=== PATIENT | female | born 1940 | race Caucasian/White ===

== ENCOUNTER → 2016-09-26 | Outpatient (REF) | payer MEDICARE, OTHER ==
[2016-09-26 15:24] LABS: ALBUMIN 3.8 GM/DL (3.2-5.2); ALBUMIN/GLOBULIN RATIO 1.15 (1.00-1.93); ALKALINE PHOSPHATASE 72 U/L (45-117); ALT/SGPT 22 U/L (12-78); ANION GAP 9 MEQ/L (8-16); AST/SGOT 17 U/L (15-37); BILIRUBIN,TOTAL 0.6 MG/DL (0.2-1.0); BLOOD UREA NITROGEN 11 MG/DL (7-18); CALCIUM LEVEL 9.9 MG/DL (8.8-10.2); CARBON DIOXIDE LEVEL 32 MEQ/L (21-32); CHLORIDE LEVEL 92 MEQ/L (98-107); CHOLESTEROL LEVEL 159 MG/DL (<200); GLOMERULAR FILTRATION RATE > 60.0 (>39); GLUCOSE, FASTING 85 MG/DL (83-110); MAGNESIUM LEVEL 1.9 MG/DL (1.8-2.4); POTASSIUM SERUM 3.9 MEQ/L (3.5-5.1); SODIUM LEVEL 133 MEQ/L (136-145); TOTAL PROTEIN 7.1 GM/DL (6.4-8.2); TRIGLYCERIDES LEVEL 140 MG/DL (<150)
== END ==
LOC: M SFHCLACO 08:34
PROVIDERS: ATTEND Physician Assistant
DX: E78.2 Mixed hyperlipidemia (principal); I10 Essential (primary) hypertension; E61.2 Magnesium deficiency

== ENCOUNTER → 2016-10-03 | Outpatient (REF) | payer MEDICARE, OTHER | LOC: M SFHCLACO 10:53 | PROVIDERS: ATTEND Physician Assistant | DX: E04.2 Nontoxic multinodular goiter (principal); I10 Essential (primary) hypertension ==

== ENCOUNTER → 2017-08-21 | Outpatient (REF) | payer OTHER, MEDICARE | LOC: M SFHCLACO 10:32 | DX: I10 Essential (primary) hypertension (principal); E78.2 Mixed hyperlipidemia; E61.2 Magnesium deficiency; E04.2 Nontoxic multinodular goiter; Z53.9 Procedure and treatment not carried out, unspecified reason ==

== ENCOUNTER → 2017-11-28 | Outpatient (REF) | payer MEDICARE ==
[2017-11-28 18:57] LABS: INR 0.92; PROTHROMBIN TIME 12.4 SECONDS (12.1-14.4)
[2017-11-28 18:58] LABS: PARTIAL THROMBOPLASTIN TIME 28.1 SECONDS (25.4-37.6)
[2017-11-28 19:19] LABS: BASO # 0.1 10^3/uL (0.0-0.2); EOS # 0.2 10^3/uL (0.0-0.50); EOS % 3.8 % (0.0-3.0); HEMATOCRIT 38.1 % (36.0-47.0); HEMOGLOBIN 12.9 g/dl (12.0-15.5); IMMATURE GRANULOCYTE % 0.4 % (0-3.0); LYMPH # 1.1 10^3/uL (1.5-4.5); LYMPH % 20.6 % (24.0-44.0); MEAN CORPUSCULAR HEMOGLOBIN 29.1 pg (27.0-33.0); MEAN CORPUSCULAR HGB CONC 33.9 g/dl (32.0-36.5); MEAN CORPUSCULAR VOLUME 85.8 fl (80.0-96.0); MONO # 0.5 10^3/uL (0.0-0.8); MONO % 9.4 % (0.0-5.0); NEUTROPHILS # 3.4 10^3/uL (1.8-7.7); NEUTROPHILS % 64.8 % (36.0-66.0); PLATELET COUNT, AUTOMATED 247 10^3/uL (150-450); RED BLOOD COUNT 4.44 10^6/uL (4.00-5.40); RED CELL DISTRIBUTION WIDTH 13.8 % (11.5-14.5); WHITE BLOOD COUNT 5.2 10^3/uL (4.0-10.0)
[2017-11-28 19:26] LABS: ALBUMIN 3.7 GM/DL (3.2-5.2); ALBUMIN/GLOBULIN RATIO 1.23 (1.00-1.93); ALKALINE PHOSPHATASE 57 U/L (45-117); ALT/SGPT 26 U/L (12-78); ANION GAP 8 MEQ/L (8-16); AST/SGOT 24 U/L (7-37); BILIRUBIN,TOTAL 0.6 MG/DL (0.2-1.0); BLOOD UREA NITROGEN 14 MG/DL (7-18); CARBON DIOXIDE LEVEL 32 MEQ/L (21-32); CHLORIDE LEVEL 94 MEQ/L (98-107); CREATININE FOR GFR 0.78 MG/DL (0.55-1.30); FREE T4 1.16 NG/DL (0.76-1.46); GLOMERULAR FILTRATION RATE > 60.0 (>39); GLUCOSE, FASTING 97 MG/DL (70-100); POTASSIUM SERUM 3.3 MEQ/L (3.5-5.1); SODIUM LEVEL 134 MEQ/L (136-145); TOTAL PROTEIN 6.7 GM/DL (6.4-8.2)
== END ==
LOC: M SFHCPLAZ 15:44
DX: Z01.818 Encounter for other preprocedural examination (principal); S42.292P Other displaced fracture of upper end of left humerus, subsequent encounter for fracture with malunion; S42.292A Other displaced fracture of upper end of left humerus, initial encounter for closed fracture; I10 Essential (primary) hypertension; S52.572A Other intraarticular fracture of lower end of left radius, initial encounter for closed fracture; E78.2 Mixed hyperlipidemia; X58.XXXA Exposure to other specified factors, initial encounter; Y92.9 Unspecified place or not applicable; W19.XXXA Unspecified fall, initial encounter
CPT/HCPCS: 84443

== ENCOUNTER 2019-01-28 07:28 | Day surgery (SDC) | payer MEDICARE ==
[~2019-01-28] VITALS: Ht 154.9 cm; Wt 65.5 kg
[~2019-01-28 07:28] MED LIST: BALANCED SALT IRRIGATION SOLUTION 500ML BAG (FOR OR EYE MACHINE) As Ordered ONE; DUOVISC (0.50ML VISCOAT/0.55ML PROVISC) OPHTH KIT As Ordered ONE; HYDR50TAB PO; LIDOCAINE 0.75%/EPINEPHRINE 0.025% IN BSS 0.8ML SYR INTRACAMERAL--OR ONLY As Ordered ONE; LISI10TA4 PO; METO50TA7 PO; MIDAZOLAM INJ 2 MG/2 ML VIAL (J2250) As Ordered ONE; OFLOXACIN 0.3 % (OCUFLOX) OPTH SOL 5ML OS ONE; PHENYLEPHRINE 2.5% OPHTH SOL 2ML OS ONE; POTA1TAB23 PO; POVIDONE-IODINE 5% OPHTH PREP SOL 30ML As Ordered ONE; PRAV40TA2 PO; PROPARACAINE 0.5% OPHTH SOL 15ML OS ONE; TROPICAMIDE 1% OPHTH SOLN 2ML OS ONE; VERA120T83 PO; fentaNYL 100 MCG/2 ML INJECTION (J3010) As Ordered ONE
[2019-01-28] MEDS ORDERED: CEFUROXIME 1MG/0.1ML INTRACAMERAL INJ As Ordered ONE (08:45)
[2019-01-28 09:35] VITALS: BP 174/77
--- NOTE | 2019-02-02 18:05 | RO ---
DATE OF PROCEDURE: 01/28/2019 PREOPERATIVE DIAGNOSIS: 1. Visually significant nuclear sclerotic cataract left eye. POSTOPERATIVE DIAGNOSIS: 1. Visually significant nuclear sclerotic cataract left eye. PROCEDURE: 1. Cataract extraction with use of phacoemulsification and placement of intraocular lens, AU00T0, 20.0 D, left eye. SURGEON: Fei Sewell DO [facility]: None. ANESTHESIA: Local with monitored anesthesia care (MAC). COMPLICATIONS: None. POSTOPERATIVE CONDITION: Stable. INDICATIONS FOR SURGERY: 1. Blurred vision affecting patients activities of daily living. DESCRIPTION OF PROCEDURE: The patient was seen in the preoperative area and properly identified. The correct operative eye was identified and marked. The patient received topical anesthetic, antibiotics, and topical dilating drops. The patient was then transferred to the operating room. The correct side was re-identified, and a time-out was performed. The eye was prepped and draped in a sterile fashion. The eyelids were isolated with Tegaderm tape, and the lids were held open with an adjustable speculum. A 1.0 mm paracentesis incision was made. Intraocular preservative-free Shugarcaine was then injected into the anterior chamber. Viscoelastic was then injected into the anterior chamber through the paracentesis. Using a 2.4 mm sharp-tipped keratome, the anterior chamber was entered via a temporal clear cornea incision. A continuous curvilinear capsulorrhexis was created with Utrata forceps. Hydrodissection was performed with balanced salt solution (BSS) on a blunt cannula until the nucleus was able to rotate freely. The crystalline lens was phacoemulsified and aspirated. Irrigation/aspiration was used to remove the cortical material. Cohesive viscoelastic was placed into the capsular bag to deepen it. The implant was placed into the capsular bag and allowed to unfold. Placement was confirmed by visualizing the anterior capsulorrhexis. Irrigation/aspiration was used to remove the viscoelastic. The clear corneal incision was hydrated with BSS on a blunt cannula. The lens was well positioned. The incisions were then tested for leaks and found to be negative. The eye was then palpated for appropriate pressure and adjusted accordingly with BSS. The eyelid speculum was then carefully removed. A shield was placed over the eye. The patient tolerated the procedure well and was discharged to the recovery unit in a stable condition.
== END 2019-01-28 09:44 | disposition home or self-care (01) ==
LOC: M SDC 07:28
PROVIDERS: ATTEND Ophthalmology
DX: H25.12 Age-related nuclear cataract, left eye (principal); I10 Essential (primary) hypertension; E78.5 Hyperlipidemia, unspecified; K21.9 Gastro-esophageal reflux disease without esophagitis; Z79.899 Other long term (current) drug therapy; Z88.1 Allergy status to other antibiotic agents; Z88.5 Allergy status to narcotic agent
CPT/HCPCS: 66984; J2250; J3010; V2632

== ENCOUNTER 2020-06-18 14:10 | Inpatient (IN) | payer MEDICARE ==
[~2020-06-18] VITALS: Ht 160 cm; Wt 65.3 kg
[~2020-06-18 14:10] MED LIST changes: -BALANCED SALT IRRIGATION SOLUTION 500ML BAG (FOR OR EYE MACHINE) As Ordered ONE; -DUOVISC (0.50ML VISCOAT/0.55ML PROVISC) OPHTH KIT As Ordered ONE; -LIDOCAINE 0.75%/EPINEPHRINE 0.025% IN BSS 0.8ML SYR INTRACAMERAL--OR ONLY As Ordered ONE; +LISI10TA22 PO; -LISI10TA4 PO; -MIDAZOLAM INJ 2 MG/2 ML VIAL (J2250) As Ordered ONE; -OFLOXACIN 0.3 % (OCUFLOX) OPTH SOL 5ML OS ONE; -PHENYLEPHRINE 2.5% OPHTH SOL 2ML OS ONE; -POVIDONE-IODINE 5% OPHTH PREP SOL 30ML As Ordered ONE; -PROPARACAINE 0.5% OPHTH SOL 15ML OS ONE; -TROPICAMIDE 1% OPHTH SOLN 2ML OS ONE; -fentaNYL 100 MCG/2 ML INJECTION (J3010) As Ordered ONE
[2020-06-18] MEDS ORDERED: NS 930 ML in IV 1 EA IV ONE (14:45)
[2020-06-18] MEDS ORDERED: cefTRIAXone SOD 2 GM in D5W MINI-BAG PLUS 50 ML IV ONE (14:45)
[2020-06-18 14:55] LABS: VENOUS BASE EXCESS 1.7 (-2.0-2.0); VENOUS HCO3 28.1 MEQ/L (23.0-27.0); VENOUS O2 SATURATION 37.3 % (60.0-80.0); VENOUS PARTIAL PRESSURE CO2 51.5 mmHg (38.0-50.0); VENOUS PARTIAL PRESSURE O2 22.1 mmHg (30.0-50.0); VENOUS PH 7.355 UNITS (7.330-7.430); VENOUS STANDARD HCO3 24.6 MEQ/L; VENOUS TOTAL CO2 29.7 MEQ/L (24.0-28.0)
--- NOTE | 2020-06-18 15:01 | ECGEPIP ---
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
[2020-06-18 15:03] LABS: HEMATOCRIT 38.1 % (36.0-47.0); HEMOGLOBIN 12.9 g/dl (12.0-15.5); MEAN CORPUSCULAR HEMOGLOBIN 28.3 pg (27.0-33.0); MEAN CORPUSCULAR HGB CONC 33.9 g/dl (32.0-36.5); MEAN CORPUSCULAR VOLUME 83.6 fl (80.0-96.0); PLATELET COUNT, AUTOMATED 272 10^3/uL (150-450); RED BLOOD COUNT 4.56 10^6/uL (4.00-5.40); WHITE BLOOD COUNT 15.6 10^3/uL (4.0-10.0)
--- OUTSIDE RECORDS SUMMARY | 2020-06-18 15:22 | CCD ---
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 No medication changes have been made Problem Hallux valgus with bunions M20.10 Active 60332 2155 Problem Environmental and seasonal allergies J30.89 Act jennifer [id number] Controlled on Flonase, no medication changes Problem Multinodular goiter (nontoxic) E04.2 Active 3 0206196 Stable, we will continue to monitor Problem Osteoarthritis involving multiple joints on both sides of body M15.9 Active 552243837 advised Aleve 2 tabs plus APAP 2 tabs in the AM, may repeat at end of day Problem Hypokalemia E87.6 Active 36366688 Problem Age-related osteoporosis without current pathological fracture M81.0 Active 97128741 Problem Essential hypertension I10 Active 22921416 Well controlled on current regimen of metoprolol, lisinopril, verapamil, and HCTZ. No medication changes have been made Problem Hypomagnesemia E83.42 Active 373248004 Problem Senile cataract of right eye, unspecified age-re lated cataract type H25.9 Active 71862726 Problem Age-related cataract of both eyes, unspecified age-related cataract type H25.9 Active 12407358 Problem Menopausal and female climacteric states N95.1 Active 806969643 ALLERGIES Allergen (clinical drug ingredient) Drug/Non Drug Allergy do cumented on EMR Reaction Allergy Type Onset Date Status doxycycline Doxycycline Hyclate([facility] Code:[address]-07) Rash Dr day Allergy Active ENCOUNTERS from 1940 to 2020-03-29 Encounter Location Date Provider Diagnosis [facility] [place] [address] [place] [id number] Feb, [facility] [place] Essential hypertension I10 IMMUNIZATIONS Vaccine Route Administration Date Status Influenza (18 yrs & older) Flublok Unknown Jan 22, 2019 Administered Influenza (High Dose 65 & up) IM Intramuscular May 21, 2012 A dministered SOCIAL HISTORY Tobacco Use: Social History Observation Description Date Details (start date - stop date) Never Smoker Sex Assigned At : Social History Observation Description Sex Assigned At Unknown Audit Question Answer Notes Total Score: 4 Interpretation: Alcohol Education Language: Question Answer Notes Languages spoken: Bulgarian Shinto: Question Answer Notes Shinto No mormonism beliefs that would impact health care. Drug and Alcohol Question Answer Notes Total Score: 0 Interpretation: No problems reported BMI Care Goal Follow-Up Question Answer Notes Above Normal BMI Follow-Up Dietary management educatio n, guidance, and counseling Tobacco Use: Question Answer Notes Are you a: never smoker never smoker REASON FOR REFERRAL No Information VITAL SIGNS No information MEDICATIONS Medication SIG (Take, Route, Frequency, Duration) Notes Start Da te End Date Status Potassium Chloride 10 MEQ 1 tablet with food Orally Once a day f or 90 days Feb, Active Cetirizine HCl 10 MG 1 tablet Orally Once a day for 30 day(s) Active Hydrochlorothiazide 50 MG 1 tablet Orally every AM for 90 days Active Metoprolol Tartrate 50MG 1 tablet with food Orally Once a day for 90 days Active Verapamil HCl 120 MG 1 tablet Orally every PM for 90 days Jul, Active Pravastatin Sodium 40 MG 1 tablet Orally Once a day for 90 days Active Pneumovax 23 25 MCG/0.5ML as directed Injection Feb, Active Lisinopril 10 MG 1 tablet Orally every noon for 90 days Active Calcium & Magnesium Carbonates 311-232 MG 1 tablet (al so contain zinc & vitamin D) Orally Once a day for 90 days Active Famotidine 20 MG 1 tablet at bedtime as needed Orally Once a day for 90 days Feb, Active Cyclobenzaprine HCl 5 MG 1 tablet at bedtime as neede d Orally Once a day for 90 days Jul, Active Flonase 50 MCG/ACT 1 spray in each nostril Nasally Once a day fo r 90 days May, Active Protonix [address] Kim Orally Twice a day for 90 days Active PROCEDURES No Information RESULTS No Results REASON FOR VISIT verapamil MEDICAL (GENERAL) HISTORY Type Description Date Medical History hypertension Medical History hyperlipidemia Medical History GERD Medical History history of peptic ulcer disease Medical History chronic environmental allergies Medical History history of migraines Medical History arthritis in the hips Medical History right hallux valgus Surgical History bladder surgery 1970s Surgical History total abdominal hysterectomy/bilateral s alpingo-oophorectomy 1979 Surgical History repair of hammertoes 09/2016 Surgical History shoulder repain left and wrist 2018 Hospitalization History surgeries as above Goals Section No Information Health Concerns No Information MEDICAL EQUIPMENT No Information MENTAL STATUS No Information FUNCTIONAL STATUS No Information ASSESSMENTS Encounter Date Diagnosis Assessment Notes Treatment Notes Treatm ent Clinical Notes Feb, Essential hypertension (ICD-10 - I10) PLAN OF TREATMENT Medication Medication Name Sig Start Date Stop Date Pneumovax 23 25 MCG/0.5ML as directed Injection Feb, Verapamil HCl 120 MG 1 tablet Orally every PM for 90 days Jul Next Appt Details Provider Name:Samira Peña, 2020-05-1 2 10:00:00 AM, [address], [place], [address], Insurance Providers Payer Name Payer Address Payer Phone Insured Name Patient Relati onship to Insured Coverage Start Date Coverage End Date MEDICARE BLUE PPO [address] [facility] [address] [place] [id number] MATTY GEORGE self
--- OUTSIDE RECORDS SUMMARY | 2020-06-18 15:22 | CCD ---
Author Author [facility] Organization [facility] Address Unknown Phone Unavailable Care Team Providers Care Post Office Manager Name Role Phone Casey, Samira PA Unavailable Unavailable Casey, Samira PA Unavailable Unavailable Casey, Samira PA Unavailable Unavailable Casey, Samira PA Unavailable Unavailable Casey, Samira PA Unavailable Unavailable Casey, Samira PA Unavailable Unavailable Casey, Samira PA Unavailable Unavailable Casey, Samira PA Unavailable Unavailable Casey, Samira PA Unavailable Unavailable Casey, Samira PA Unavailable Unavailable Casey, Samira PA Unavailable Unavailable Casey, Samira PA Unavailable Unavailable Casey, Samira PA Unavailable Unavailable Casey, Samira PA Unavailable Unavailable Casey, Samira PA Unavailable Unavailable Casey, Samira PA Unavailable Unavailable Casey, Samira PA Unavailable Unavailable Casey, Samira PA Unavailable Unavailable Casey, Samira PA Unavailable Unavailable Casey, Samira PA Unavailable Unavailable Casey, Samira PA Unavailable Unavailable Casey, Samira PA Unavailable Unavailable Acsey, Samira PA Unavailable Unavailable Casey, Samira PA Unavailable Unavailable Casey, Samira PA Unavailable Unavailable Casey, Samira PA Unavailable Unavailable Casey, Samira PA Unavailable Unavailable Casey, Samira PA Unavailable Unavailable Casey, Samira PA Unavailable Unavailable Casey, Samira PA Unavailable Unavailable Casey, Samira PA Unavailable Unavailable Casey, Samira PA Unavailable Unavailable Casey, Samira PA Unavailable Unavailable Casey, Samira PA Unavailable Unavailable Casey, Samira PA Unavailable Unavailable Casey, Samira PA Unavailable Unavailable Casey, Samira PA Unavailable Unavailable Casye, Samira PA Unavailable Unavailable Casey, Samira PA Unavailable Unavailable Casey, Samira PA Unavailable Unavailable Casey, Samira PA Unavailable Unavailable Casey, Samira PA Unavailable Unavailable Casey, Samira PA Unavailable Unavailable Casey, Samira PA Unavailable Unavailable Casey, Samira PA Unavailable Unavailable Casey, Samira PA Unavailable Unavailable Casey, Samira PA Unavailable Unavailable Casey, Samira PA Unavailable Unavailable Casey, Samira PA Unavailable Unavailable Casey, Samira PA Unavailable Unavailable Casey, Samira PA Unavailable Unavailable Casey, Samira PA Unavailable Unavailable Casey, Samira PA Unavailable Unavailable Casey, Samira PA Unavailable Unavailable Casey, Samira PA Unavailable Unavailable Casey, Samira PA Unavailable Unavailable Casey, Samira PA Unavailable Unavailable Casey, Samira PA Unavailable Unavailable Cecilia Gutierrez MD Ronn Unavailable Unavailable Cecilia Gutierrez MD Ronn Unavailable Brenda COX, M Ronn Unavailable Brenda COX, M Ronn Unavailable Brenda COX M Ronn Unavailable Brenda COX M Ronn Unavailable Brenda COX, M Ronn Unavailable Brenda COX, M Ronn Unavailable Brenda COX M Ronn Unavailable Brenda COX, M Ronn Unavailable Brenda COX, M Ronn Unavailable Brenda COX, M Ronn Unavailable Brenda COX M Ronn Unavailable Brenda COX M Ronn Unavailable Brenda COX M Ronn Unavailable Brenda COX M Ronn Unavailable Brenda COX M Ronn Unavailable Orio MD, M Ronn Unavailable Orio MD, M Ronn Unavailable Orio MD, M Ronn Unavailable Orio MD, M Ronn Unavailable Orio MD, M Ronn Unavailable Orio MD, M Ronn Unavailable Orio MD, M Ronn Unavailable Orio MD, M Ronn Unavailable Orio MD, M Ronn Unavailable Orio MD, M Ronn Unavailable Orio MD, M Ronn Unavailable Orio MD, M Ronn Unavailable Orio MD, M Ronn Unavailable Re-disclosure Warning The records that you are about to access may contain information from federally-assisted alcohol or drug abuse programs. If such information is present, then the following federally mandated warning applies: This information has been disclosed to you from records protected by federal confidentiality rules (42 CFR part 2). The federal rules prohibit you from making any further disclosure of this information unless further disclosure is expressly permitted by the written consent of the person to whom it pertains or as otherwise permitted by 42 CFR part 2. A general authorization for the release of medical or other information is NOT sufficient for this purpose. The Federal rules restrict any use of the information to criminally investigate or prosecute any alcohol or drug abuse patient.The records that you are about to access may contain highly sensitive health information, the redisclosure of which is protected by Article 27-F of the [facility] Public Health law. If you continue you may have access to information: Regarding HIV / AIDS; Provided by facilities licensed or operated by the [facility] Office of Mental Health; or Provided by the [facility] Office for People With Developmental Disabilities. If such information is present, then the following [facility] mandated warning applies: This information has been disclosed to you from confidential records which are protected by state law. State law prohibits you from making any further disclosure of this information without the specific written consent of the person to whom it pertains, or as otherwise permitted by law. Any unauthorized further disclosure in violation of state law may result in a fine or intermediate sentence or both. A general authorization for the release of medical or other information is NOT sufficient authorization for further disc losure. Allergies and Adverse Reactions Type Description Substance Reaction Status Data Source(s ) Drug allergy Doxycycline Hyclate Doxycycline Rash Active eC W1 ([facility]) Encounters Encounter Providers Location Date Indications Data Source(s ) Unknown [address] [place] [id number] 05/25/2020 12:00:00 AM EST eCW1 ([facility]) Unknown [address] [place] [phone] 05/15/2020 12:00:00 AM EST eCW1 ([facility]) Unknown [address] [facility] [id number] 03/27/2020 12:00:00 AM EST eCW1 ([facility]) Outpatient [address] [facility] [id number] 03/08/2020 12:00:00 AM EST eCW1 ([facility]) Recurring Patient Attender: Ronn REESEeferrer: Samira STREETER 02/29/2020 08:08:57 AM EST [facility] Outpatient Attender: Ronn Gutierrez MDReferrer: Samira STREETER 02/28/2020 03:42:16 PM EST [facility] Recurring Patient Attender: Ronn REESEeferrer: Samira STREETER 02/28/2020 03:10:24 PM EST [facility] Icard [address] [facility] [id number] 02/25/2020 12:00:00 AM EDT eCW1 ([facility]) Outpatient Attender: Samira STREETER 02/22/2020 08:02:0 0 AM EDT Lab [facility] Lab Unknown [address] [facility] [id number] 11/16/2019 12:00:00 AM EDT eCW1 ([facility]) [facility] Iker [address] [facility] [address] 09/07/2019 12:00:00 AM EDT eCW1 ([facility]) [facility] Emily [address] [facility] [address] 08/31/2019 12:00:00 AM EDT eCW1 ([facility]) [facility] Iker [address] [place] [address], [place] [address] 08/24/2019 12:00:00 AM EDT eCW1 [facility]) Outpatient Attender: Samira STREETER 08/18/2019 08:39:0 0 AM EDT Lab [facility] Lab [facility] Iker [address] [place] [address], [place] [address] 08/10/2019 12:00:00 AM EDT eCW1 ([facility]) [facility] Iker [address] [place] [address], [place] [address] 08/10/2019 12:00:00 AM EDT eCW1 ([facility]) [facility] Emily [address] [place] [address], [place] [address] 06/08/2019 12:00:00 AM EST eCW1 ([facility]) [facility] Emily [address] [place] [address], [place] [address] 05/11/2019 12:00:00 AM EST eCW1 ([facility]) [facility] Emily [address] [place] [address], [place] [address] 05/07/2019 12:00:00 AM EST eCW1 ([facility]) Medications Medication Brand Name Start Date Product Form Dose Route Admi nistrative Instructions Pharmacy Instructions Status Indications Reaction Description Data Source(s) 0.5 ML pneumococcal capsular polysacchar kylee type 1 vaccine 0.05 MG/ML / pneumococcal capsular polysaccharide type 10A vaccine 0.05 MG/ML / pneumococcal capsular polysaccharide type 11A vaccine 0.05 MG/ML / pneumococcal capsular polysaccharide type 12F vac Pneumovax 23 25 MCG/0.5ML Pneumovax 23 25 MCG/0.5ML 03/08/2020 12:00:00 AM EST active Pneumovax 23 25 MCG/0.5ML eCW1 ([facility]) 0.5 ML pneumococcal capsular polysacchar kylee type 1 vaccine 0.05 MG/ML / pneumococcal capsular polysaccharide type 10A vaccine 0.05 MG/ML / pneumococcal capsular polysaccharide type 11A vaccine 0.05 MG/ML / pneumococcal capsular polysaccharide type 12F vac Pneumovax 23 25 MCG/0.5ML Pneumovax 23 25 MCG/0.5ML 03/08/2020 12:00:00 AM EST active Pneumovax 23 25 MCG/0.5ML eCW1 ([facility]) 0.5 ML pneumococcal capsular polysacchar kylee type 1 vaccine 0.05 MG/ML / pneumococcal capsular polysaccharide type 10A vaccine 0.05 MG/ML / pneumococcal capsular polysaccharide type 11A vaccine 0.05 MG/ML / pneumococcal capsular polysaccharide type 12F vac Pneumovax 23 25 MCG/0.5ML Pneumovax 23 25 MCG/0.5ML 03/08/2020 12:00:00 AM EST active Pneumovax 23 25 MCG/0.5ML eCW1 ([facility]) 0.5 ML pneumococcal capsular polysacchar kylee type 1 vaccine 0.05 MG/ML / pneumococcal capsular polysaccharide type 10A vaccine 0.05 MG/ML / pneumococcal capsular polysaccharide type 11A vaccine 0.05 MG/ML / pneumococcal capsular polysaccharide type 12F vac Pneumovax 23 25 MCG/0.5ML Pneumovax 23 25 MCG/0.5ML 03/08/2020 12:00:00 AM EST active Pneumovax 23 25 MCG/0.5ML eCW1 ([facility]) Cyclobenzaprine hydrochloride 5 MG Oral Tablet Cyclobe nzaprine HCl 5 MG Cyclobenzaprine HCl 5 MG 08/24/2019 12:00:00 AM EDT 1.0 {tablet_at_bedtime_as_needed} active Cy clobenzaprine HCl 5 MG eCW1 ([facility]) Cyclobenzaprine hydrochloride 5 MG Oral Tablet Cyclobe nzaprine HCl 5 MG Cyclobenzaprine HCl 5 MG 08/24/2019 12:00:00 AM EDT 1.0 {tablet_at_bedtime_as_needed} active Cy clobenzaprine HCl 5 MG eCW1 ([facility]) Cyclobenzaprine hydrochloride 5 MG Oral Tablet Cyclobe nzaprine HCl 5 MG Cyclobenzaprine HCl 5 MG 08/24/2019 12:00:00 AM EDT active 1 tablet at bedtime as needed eCW1 ([facility]) Cyclobenzaprine hydrochloride 5 MG Oral Tablet Cyclobe nzaprine HCl 5 MG Cyclobenzaprine HCl 5 MG 08/24/2019 12:00:00 AM EDT 1.0 {tablet_at_bedtime_as_needed} active Cy clobenzaprine HCl 5 MG eCW1 ([facility]) Cyclobenzaprine hydrochloride 5 MG Oral Tablet Cyclobe nzaprine HCl 5 MG Cyclobenzaprine HCl 5 MG 08/24/2019 12:00:00 AM EDT 1.0 {tablet_at_bedtime_as_needed} active Cy clobenzaprine HCl 5 MG eCW1 ([facility]) Cyclobenzaprine hydrochloride 5 MG Oral Tablet Cyclobe nzaprine HCl 5 MG Cyclobenzaprine HCl 5 MG 08/24/2019 12:00:00 AM EDT 1.0 {tablet_at_bedtime_as_needed} active Cy clobenzaprine HCl 5 MG eCW1 ([facility]) Insurance Providers Payer name Policy type / Coverage type Policy ID Covered constitution party ID Covered constitution party's relationship to fontaine Policy [place] Plan Information MEDICARE BLUE PPO 306 [id number] SP [id number] MEDICARE BLUE PPO 306 [id number] SP [id number] Blue Shield Medicare P [id number] SELF [id number] SELF PAY MEDICARE BLUE PPO EXCELLUS BC [id number] SP [id number] SELF PAY MEDICARE BLUE PPO EXCELLUS BC [id number] SP [id number] SELF PAY MEDICARE BLUE PPO EXCELLUS BC [id number] SP [id number] SELF PAY MEDICARE BLUE PPO EXCELLUS BC [id number] SP [id number] MEDICARE BLUE PPO 306 [id number] SP [id number] [facility] Other 0 Self 0 MEDICARE [id number] SP [id number] MEDICARE COMPLETE [id number] SP [id number] [facility] [id number] SP [id number] ANSI-Medicare Part B [id number] ANSI-Medicare Part B [id number] ANSI-Medicare Part B [id number] ANSI-Medicare Part B [id number] ANSI-Medicare Part B [id number] ANSI-Medicare Part B [id number] ANSI-Medicare Part B [id number] ANSI-Medicare Part B [id number] ANSI-Medicare Part B [id number] ANSI-Medicare Part B [id number] ANSI-Medicare Part B [id number] ANSI-Medicare Part B [id number] ANSI-Medicare Part B [id number] ANSI-Medicare Part B [id number] ANSI-Medicare Part B [id number] ANSI-Medicare Part B [id number] ANSI-Medicare Part B [id number] ANSI-Medicare Part B [id number] ANSI-Medicare Part B [id number] ANSI-Medicare Part B [id number] ANSI-Medicare Part B [id number] ANSI-Medicare Part B [id number] ANSI-Medicare Part B [id number] ANSI-Medicare Part B [id number] ANSI-Medicare Part B [id number] ANSI-Medicare Part B [id number] ANSI-Medicare Part B [id number] SELF PAY MEDICARE BLUE PPO EXCELLUS [id number] SP [id number] ANSI-Medicare Part B [id number] ANSI-Medicare Part B [id number] ANSI-Medicare Part B [id number] ANSI-Medicare Part B [id number] ANSI-Medicare Part B [id number] ANSI-Medicare Part B [id number] ANSI-Medicare Part B [id number] ANSI-Medicare Part B [id number] ANSI-Medicare Part B [id number] ANSI-Medicare Part B [id number] ANSI-Medicare Part B [id number] ANSI-Medicare Part B [id number] ANSI-Medicare Part B [id number] ANSI-Medicare Part B [id number] [facility] Medicare Passport F [id number] SELF [id number] ANSI-Medicare Part B [id number] ANSI-Medicare Part B [id number] [facility] Medicare Passport F [id number] SELF [id number] [facility] MEDICARE [id number] Sarah [id number] [facility] MEDICARE PI PI ANSI-Medicare Part B [id number] ANSI-Medicare Part B [id number] ANSI-Medicare Part B [id number] ANSI-Medicare Part B [id number] [facility] MEDICAID [id number] Sarah [id number] [facility] Medicare Passport F [id number] SELF [id number] [facility] Comm Plan Medicare F [id number] SELF [id number] Medicare C [id number] SELF [id number] A [facility] [id number] S [id number] [facility] MGD MEDICARE [id number] SP [id number] [facility] MGD MEDICARE [id number] SP [id number] MEDICARE [id number] SP [id number] D [facility] MEDICARE [place] [id number] S [id number] [employer] B[employer] [id number] SP [id number] [employer] [id number] SP [id number] [employer] [id number] SP [id number] [employer] [id number] SP [id number] D [id number] Problems, Conditions, and Diagnoses Code Display Name Description Problem Type Effective Dates Data Source(s) E78.2 Mixed hyperlipidemia E78.2 - Mixed hyperlipidemia Diag nosis 02/22/2020 08:02:00 AM EDT [facility] Surgeries/Procedures Procedure Description Date Indications Data Source(s) PHYSICIAN TELEPHONE EVALUATION 21-30 MIN 08/24/2019 12 :00:00 AM EDT eCW1 ([facility]) Results ID Date Data Source [id number] 02/28/2020 03:42:16 PM EST [facility] PCName: Deidre GeorgeROBB: 3Provider: Simon Gutierrez: 02/28/2020 Reason For VisitSOS Patient Intake: Deidre George is here today for Left Knee. Deidre George is a new patient. SOS Occupation and Work Status: Patient is retired. History of Present IllnessDeidre is a 79-year-old female presenting to clinic for evaluation of left knee pain. Patient reports that she has been experiencing left knee pain for the past few years. Patient rates their pain as a 9 on a scale of 1-10 and reports the use of over the counter medications including Tylenol and NSAIDS. Patient denies any previous trauma and denies the use of any assistive devices. Additionally patient reports a history of physical therapy, and prior steroid injections which she had performed a few years ago with good relief of her symptoms, but denies previous surgeries of the left knee. Patient also states that their pain has been constant with all activities of daily living and localizes pain and discomfort mostly to the lateral joint line of the left knee. Results/DataX- rays of the left knee including AP, lateral, merchant views were ordered, obtained, and interpreted with the patient. There are moderate degenerative changes of the knee with joint space narrowing, subchondral sclerosis, and early osteophyte formation. There is no radiographic evidence of AVN, fracture, or dislocation. AssessmentLeft knee primary osteoarthritis Plan X-Ray I Knee - 3 views (XRays were ordered, obtained and interpreted today in theoffice. Indication: pain/dysfunction.); Status:Complete; Done: 28Feb2020 Perform:SOS14 (General); Due:13Mar2020; Last Updated By:Minal Hardy; 02/28/2020 3:22:55 PM;Ordered; For:Left knee pain; Ordered By:Ronn Gutierrez;Weight Bearing Status : Weight bearingLaterality: : Left Plan- I discussed the diagnosis and treatment options in detail with the patient.- The patient is in agreement with and would like to proceed with this treatment and in the office today I performed a cortisone injection to the left knee as patient wishes to continue with conservative management of her left knee complaints at this cfjt-Quyi-ang-counter anti-inflammatories as needed for pain control-Recommended daily physical activity along with use of stationary bike for exercise to continue to work on and maintain knee range of motion and quadriceps strength- Follow up in clinic in 3 months for repeat evaluation of her left knee- All questions were answered with patient and instructed to call office for sooner appointment if symptoms worsen or have any further questions Signatures Electronically signed by : Ronn Gutierrez M.D.; Feb 28 2020 3:42PM EST (Author) Name Value Range Interpretation Code Description Data Annette rce(s) Supporting Document(s) ID Date Data Source [id number] 02/22/2020 01:52:00 PM EDT [facility] Name Value Range Interpretation Code Description Data Annette rce(s) Supporting Document(s) SODIUM 132 MEQ/L 135-145 L [facility] POTASSIUM 3.9 MEQ/L 3.5-5.3 N [facility] CHLORIDE 97 MEQ/L 94-110 N [facility] CARBON DIOXIDE 31 MEQ/L 22-33 N [facility] ANION GAP 8 5-16 N [facility] BLOOD UREA NITRO 20 MG/DL 7-25 N [facility] CREATININE 0.8 MG/DL 0.6-1.4 N [facility] GFR 69.6 ML/MIN [facility] Stage G2 - Mildly decreased kidney func tion The GFR is an estimate of the Glomerular Filtration Rate. It is an aid to assess a patient's renal function. It is not a conclusive diagnosis of kidney disease. GFR normal is >=90 The MDRD GFR calculation is considered valid between the ages of 18 and 75 years only. BUN/CREAT RATIO 25 8-36 N [facility] GLUCOSE 100 MG/DL 70-100 N [facility] CA 10.3 MG/DL 8.7-10.5 N [facility] BILIRUBIN,TOTAL 0.6 MG/DL 0.1-1.3 N [facility] AST 18 U/L 5-40 N [facility] ALT 19 U/L 5-48 [facility] ALKALINE PHOSPHATASE 58 U/L 40-140 [facility] TOTAL PROTEIN 6.6 G/DL 5.9-8.3 N [facility] ALBUMIN 4.8 G/DL 3.0-5.1 N [facility] GLOBULIN 1.8 G/DL 1.5-3.5 N [facility] ALB/GLOB RATIO 2.7 G/DL 1.0-3.0 N [facility] ID Date Data Source [id number] 02/22/2020 01:52:00 PM [facility] Name Value Range Interpretation Code Description Data Annette rce(s) Supporting Document(s) MAGNESIUM 1.8 mg/dl 1.8-2.4 N [facility] ID Date Data Source [id number] 02/22/2020 01:52:00 PM [facility] Name Value Range Interpretation Code Description Data Annette rce(s) Supporting Document(s) TRIGLYCERIDES 135 MG/DL 45-150 [facility] CHOLESTEROL 156 MG/DL 125-200 [facility] LDL CHOLESTEROL 72 MG/DL 50-130 [facility] HDL CHOLESTEROL 57 MG/DL 32-96 N [facility] CHOL/HDL RATIO 2.7 0-4.3 N [facility] ID Date Data Source [id number] 02/22/2020 01:52:00 PM [facility] Name Value Range Interpretation Code Description Data Annette rce(s) Supporting Document(s) Vitamin D,25-HYDROXY 73.9 ng/ml 30-100 N [facility] ealt Vitamin D Status Range De ficiency <20 ng/ml Insufficiency 20-29.9 ng/ml Sufficiency 30-100 ng/ml Toxicity >100 ng/ml Patients should not be tested for 72 hours post fluorescein dye angiography. A false elevation of result may occur. ID Date Data Source [id number] 02/22/2020 01:52:00 PM EDT [facility] Name Value Range Interpretation Code Description Data [facility] rce(s) Supporting Document(s) TSH 1.307 uIU/ML 0.470-4.200 N [facility] Patients should not be tested for 72 ho urs post fluorescein dye angiography. A false depression of result may occur. ID Date Data Source [id number] 08/18/2019 01:58:00 PM EDT [facility] Name Value Range Interpretation Code Description Data [facility](s) Supporting Document(s) SODIUM 136 MEQ/L 135-145 [facility] POTASSIUM 4.0 MEQ/L 3.5-5.3 [facility] CHLORIDE 96 MEQ/L 94-110 [facility] CARBON DIOXIDE 32 MEQ/L 22-33 [facility] ANION GAP 12 5-16 [facility] BLOOD UREA NITRO 21 MG/DL 7-25 [facility] CREATININE 0.9 MG/DL 0.6-1.4 [facility] GFR 60.7 ML/MIN [facility] Stage G2 - Mildly decreased kidney func tion The GFR is an estimate of the Glomerular Filtration Rate. It is an aid to assess a patient's renal function. It is not a conclusive diagnosis of kidney disease. GFR normal is >=90 The MDRD GFR calculation is considered valid between the ages of 18 and 75 years only. BUN/CREAT RATIO 23 8-36 [facility] GLUCOSE 92 MG/DL 70-100 [facility] CA 10.2 MG/DL 8.7-10.5 [facility] BILIRUBIN,TOTAL 0.7 MG/DL 0.1-1.3 [facility] AST 20 U/L 5-40 [facility] ALT 19 U/L 5-48 [facility] ALKALINE PHOSPHATASE 69 U/L 40-140 N [facility] TOTAL PROTEIN 6.7 G/DL 5.9-8.3 [facility] ALBUMIN 5.0 G/DL 3.0-5.1 [facility] GLOBULIN 1.7 G/DL 1.5-3.5 [facility] ALB/GLOB RATIO 2.9 G/DL 1.0-3.0 N [facility] ID Date Data Source [id number] 08/18/2019 01:58:00 PM EDT [facility] Value Range Interpretation Code Description Data Annette rce(s) Supporting Document(s) MAGNESIUM 1.8 mg/dl 1.8-2.4 N [facility] ID Date Data Source [id number] 08/18/2019 01:58:00 PM EDT [facility] Value Range Interpretation Code Description Data Annette rce(s) Supporting Document(s) TRIGLYCERIDES 193 MG/DL 45-150 [facility] CHOLESTEROL 166 MG/DL 125-200 N [facility] LDL CHOLESTEROL 71 MG/DL 50-130 [facility] HDL CHOLESTEROL 56 MG/DL 32-96 N [facility] CHOL/HDL RATIO 3.0 0-4.3 N [facility] ID Date Data Source [id number] 08/18/2019 01:58:00 PM EDT [facility] Value Range Interpretation Code Description Data Annette rce(s) Supporting Document(s) Vitamin D,25-HYDROXY 23.3 ng/ml 30-100 [facility] Status Range De ficiency <20 ng/ml Insufficiency 20-29.9 ng/ml Sufficiency 30-100 ng/ml Toxicity >100 ng/ml Patients should not be tested for 72 hours post fluorescein dye angiography. A false elevation of result may occur. Procedure Social History Code Duration Value Status Description Data Source(s ) Smoking 03/24/2020 12:00:00 AM EST Never Smoker completed Never S moker eCW1 ([facility]) Smoking 03/24/2020 12:00:00 AM EST Never Smoker completed Never S moker eCW1 ([facility]) Smoking 03/24/2020 12:00:00 AM EST Never Smoker completed Never S moker eCW1 ([facility]) Smoking 03/24/2020 12:00:00 AM EST Never Smoker completed Never S moker eCW1 ([facility]) Smoking 09/09/2019 12:00:00 AM EDT Never Smoker completed Never S moker eCW1 ([facility]) Vital Signs ID Date Data Source UNK Name Value Range Interpretation Code Description Data Source(s) Diastolic blood pressure 76 mm[Hg] 76 mm[Hg] eCW1 ([facility]) Systolic blood pressure 118 mm[Hg] 118 mm[Hg] e CW1 ([facility]) Body temperature 97.4 [degF] 97.4 [degF] eCW1 ( [facility]) Respiratory rate 18 /min 18 /min eCW1 ([facility]) Heart rate 66 /min 66 /min eCW1 ([facility]) Body mass index (BMI) [Ratio] 25.63 kg/m2 25.63 kg/m2 eCW1 ([facility]) Body height 62.50 [in_i] 62.50 [in_i] eCW1 ([facility]) Body weight 142.4 [lb_av] 142.4 [lb_av] eCW1 ([facility]) Diastolic blood pressure mm[Hg] eCW1 ([facility]) Systolic blood pressure 110 mm[Hg] 110 mm[Hg] e CW1 ([facility]) Heart rate 57 /min 57 /min eCW1 ([facility]) Body mass index (BMI) [Ratio] 26.10 kg/m2 26.10 kg/m2 eCW1 ([facility]) Body height 62.50 [in_us] 62.50 [in_us] eCW1 ([facility]) Body weight Measured [lb_av] eCW1 ([facility]) Patient Treatment Plan of Care Planned Activity Planned Date Details Description Data Source (s) 0.5 ML pneumococcal capsular polysacchar kylee type 1 vaccine 0.05 MG/ML / pneumococcal capsular polysaccharide type 10A vaccine 0.05 MG/ML / pneumococcal capsular polysaccharide type 11A vaccine 0.05 MG/ML / pneumococcal capsular polysaccharide type 12F vac 03/08/2020 12:00:00 AM EST eCW1 ([facility]) 0.5 ML pneumococcal capsular polysacchar kylee type 1 vaccine 0.05 MG/ML / pneumococcal capsular polysaccharide type 10A vaccine 0.05 MG/ML / pneumococcal capsular polysaccharide type 11A vaccine 0.05 MG/ML / pneumococcal capsular polysaccharide type 12F vac 03/08/2020 12:00:00 AM EST eCW1 ([facility]) 0.5 ML pneumococcal capsular polysacchar kylee type 1 vaccine 0.05 MG/ML / pneumococcal capsular polysaccharide type 10A vaccine 0.05 MG/ML / pneumococcal capsular polysaccharide type 11A vaccine 0.05 MG/ML / pneumococcal capsular polysaccharide type 12F vac 03/08/2020 12:00:00 AM EST eCW1 ([facility]) 0.5 ML pneumococcal capsular polysacchar kylee type 1 vaccine 0.05 MG/ML / pneumococcal capsular polysaccharide type 10A vaccine 0.05 MG/ML / pneumococcal capsular polysaccharide type 11A vaccine 0.05 MG/ML / pneumococcal capsular polysaccharide type 12F vac 03/08/2020 12:00:00 AM EST eCW1 ([facility]) Cyclobenzaprine hydrochloride 5 MG Oral Tablet 08/24/2019 12:00:00 AM EDT eCW1 ([facility]) Cyclobenzaprine hydrochloride 5 MG Oral Tablet 08/24/2019 12:00:00 AM EDT eCW1 ([facility])
--- OUTSIDE RECORDS SUMMARY | 2020-06-18 15:22 | CCD ---
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 No medication changes have been made Problem Hallux valgus with bunions M20.10 Active 91195 0573 Problem Environmental and seasonal allergies J30.89 Act jennifer [id number] Controlled on Flonase, no medication changes Problem Multinodular goiter (nontoxic) E04.2 Active 3 0103140 Stable, we will continue to monitor Problem Osteoarthritis involving multiple joints on both sides of body M15.9 Active 193428122 advised Aleve 2 tabs plus APAP 2 tabs in the AM, may repeat at end of day Problem Hypokalemia E87.6 Active 66263749 Problem Age-related osteoporosis without current pathological fracture M81.0 Active 79588682 Problem Essential hypertension I10 Active 52996986 Well controlled on current regimen of metoprolol, lisinopril, verapamil, and HCTZ. No medication changes have been made Problem Hypomagnesemia E83.42 Active 938216761 Problem Senile cataract of right eye, unspecified age-re lated cataract type H25.9 Active 18642700 Problem Age-related cataract of both eyes, unspecified age-related cataract type H25.9 Active 44220583 Problem Menopausal and female climacteric states N95.1 Active 598210600 ALLERGIES Allergen (clinical drug ingredient) Drug/Non Drug Allergy do cumented on EMR Reaction Allergy Type Onset Date Status doxycycline Doxycycline Hyclate([facility] Code:[address]-26) Rash Dr day Allergy Active ENCOUNTERS from 1942 to 2020-05-25 Encounter Location Date Provider Diagnosis [facility] [place] [address] [place] [id number] 28 Apr, 2020 He[facility] Casey Mixed hyperlipidemia E78.2 IMMUNIZATIONS Vaccine Route Administration Date Status Influenza (18 yrs & older) Flublok Unknown Jan 22, 2019 Administered Influenza (High Dose 65 & up) IM Intramuscular May 21, 2012 A dministered SOCIAL HISTORY Tobacco Use: Social History Observation Description Date Details (start date - stop date) Never Smoker Sex Assigned At : Social History Observation Description Sex Assigned At Unknown Audit Question Answer Notes Interpretation: Alcohol Education Total Score: 4 Language: Question Answer Notes Languages spoken: Palauan Mu-Ism: Question Answer Notes Mu-Ism No buddhist beliefs that would impact health care. Drug and Alcohol Question Answer Notes Interpretation: No problems reported Total Score: 0 BMI Care Goal Follow-Up Question Answer Notes Above Normal BMI Follow-Up Dietary management educatio n, guidance, and counseling Tobacco Use: Question Answer Notes Are you a: never smoker never smoker REASON FOR REFERRAL No Information VITAL SIGNS No information MEDICATIONS Medication SIG (Take, Route, Frequency, Duration) Notes Start Da te End Date Status Pneumovax 23 25 MCG/0.5ML as directed Injection Feb, Active Protonix [address] Kim Orally Twice a day for 90 days Active Cetirizine HCl 10 MG 1 tablet Orally Once a day for 30 day(s) Active Lisinopril 10 MG 1 tablet Orally every noon for 90 days Active Verapamil HCl 120 MG 1 tablet Orally every PM for 90 days Jul, Active Calcium & Magnesium Carbonates 311-232 MG 1 tablet (al so contain zinc & vitamin D) Orally Once a day for 90 days Active Cyclobenzaprine HCl 5 MG 1 tablet at bedtime as neede d Orally Once a day for 90 days Jul, Active Famotidine 20 MG 1 tablet at bedtime as needed Orally Once a day for 90 days Feb, Active Metoprolol Tartrate 50MG 1 tablet with food Orally Once a day for 90 days Active Potassium Chloride 10 MEQ 1 tablet with food Orally Once a day f or 90 days Feb, Active Hydrochlorothiazide 50 MG 1 tablet Orally every AM for 90 days Active Flonase 50 MCG/ACT 1 spray in each nostril Nasally Once a day fo r 90 days May, Active Pravastatin Sodium 40 MG 1 tablet Orally Once a day for 90 days Active PROCEDURES No Information RESULTS No Results REASON FOR VISIT pravastatin MEDICAL (GENERAL) HISTORY Type Description Date Medical [...] Notes Treatment Notes Treatm ent Clinical Notes Apr, Mixed hyperlipidemia (ICD-10 - E78.2) We ll controlled on current regimen of pravastatin. No medication changes have been made PLAN OF TREATMENT Medication Medication Name Sig Start Date Stop Date Pravastatin Sodium 40 MG 1 tablet Orally Once a day for 90 days Verapamil HCl 120 MG 1 tablet Orally every PM for 90 days Jul Hydrochlorothiazide 50 MG 1 tablet Orally every AM for 90 days Pneumovax 23 25 MCG/0.5ML as directed Injection Feb, Metoprolol Tartrate 50MG 1 tablet with food Orally Once a day fo r 90 days Next Appt Details Provider Name:Samira Caraballouel, 2020-05-1 2 10:00:00 AM, [address], [place], [address], Insurance Providers Payer Name Payer Address Payer Phone Insured Name Patient Relati onship to Insured Coverage Start Date Coverage End Date MEDICARE BLUE PPO [address] [facility] [id number] [place] self
--- OUTSIDE RECORDS SUMMARY | 2020-06-18 15:22 | CCD ---
Author Author [facility] ems Organization [facility] ems Address Unknown Phone Unavailable Care Team Providers Care Usability Architect Name Role Phone Samira Peña Unavailable PROBLEMS Type Condition ICD9-CM Code [id number] Code Onset Dates Condition S tatus SNOMED Code Notes Problem Esophageal reflux K21.9 Active 127211000 Well controlled on current regimen of Protonix and ranitidine Problem Mixed hyperlipidemia E78.2 Active 767984461 W ell controlled on current regimen of pravastatin. No medication changes have been made Problem Hallux valgus with bunions M20.10 Active 17871 4493 Problem Environmental and seasonal allergies J30.89 Act jennifer 933727022 Controlled on Flonase, no medication changes Problem Multinodular goiter (nontoxic) E04.2 Active 3 2675399 Stable, we will continue to monitor Problem Osteoarthritis involving multiple joints on both sides of body M15.9 Active 130172550 advised Aleve 2 tabs plus APAP 2 tabs in the AM, may repeat at end of day Problem Hypokalemia E87.6 Active 41669084 Problem Age-related osteoporosis without current pathological fracture M81.0 Active 99943575 Problem Essential hypertension I10 Active 32356060 Well controlled on current regimen of metoprolol, lisinopril, verapamil, and HCTZ. No medication changes have been made Problem Hypomagnesemia E83.42 Active 387198717 Problem Senile cataract of right eye, unspecified age-re lated cataract type H25.9 Active 90201325 Problem Age-related cataract of both eyes, unspecified age-related cataract type H25.9 Active 48969545 Problem Menopausal and female climacteric states N95.1 Active 683302979 ALLERGIES Allergen (clinical drug ingredient) Drug/Non Drug Allergy do cumented on EMR Reaction Allergy Type Onset Date Status doxycycline Doxycycline Hyclate([facility] Code:[address]-40) Rash Dr day Allergy Active ENCOUNTERS from 1942 to 2020-05-17 Encounter Location Date Provider Diagnosis [facility] [address] [address] [place] [id number] 18 Apr, 2020 [facility] Essential hypertension I10 IMMUNIZATIONS [...] Education Language: Question Answer Notes Languages spoken: Senegalese Congregation: Question Answer Notes Congregation No yarsani beliefs that would impact health care. Drug [...] Notes Start Da te End Date Status Pravastatin Sodium 40 MG 1 tablet Orally Once a day for 90 days Active Protonix [address] [...] 25 MCG/0.5ML as directed Injection Feb, Active Hydrochlorothiazide 50 MG 1 tablet Orally every AM for 90 days Active Flonase 50 MCG/ACT 1 spray in each nostril Nasally Once a day fo r 90 days May, Active Potassium Chloride 10 MEQ 1 tablet with food Orally Once a day f or 90 days Feb, Active PROCEDURES No Information RESULTS No Results REASON FOR VISIT metoprolol, hydrochlorthyzide MEDICAL (GENERAL) HISTORY Type Description Date Medical [...] Treatment Notes Treatm ent Clinical Notes Apr, Essential hypertension (ICD-10 - I10) We ll controlled on current regimen of metoprolol, lisinopril, verapamil, and HCTZ. No medication changes have been made PLAN OF TREATMENT Medication Medication Name Sig Start Date Stop Date Pneumovax 23 25 MCG/0.5ML as directed Injection Feb, Verapamil HCl 120 MG 1 tablet Orally every PM for 90 days Jul Metoprolol Tartrate 50MG 1 tablet with food Orally Once a day fo r 90 days Hydrochlorothiazide 50 MG 1 tablet Orally every AM for 90 days Next Appt Details Provider Name:Samiraher Caraballouel, 2020-05-1 2 10:00:00 AM, [address], [place], [address], Insurance Providers Payer Name Payer Address Payer Phone Insured Name Patient Relati onship to Insured Coverage Start Date Coverage End Date MEDICARE BLUE PPO [address] [facility] [address] [address] [facility] [address] [place] self
--- OUTSIDE RECORDS SUMMARY | 2020-06-18 15:22 | CCD ---
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 No medication changes have been made Problem Hallux valgus with bunions M20.10 Active 86434 1113 Problem Environmental and seasonal allergies J30.89 Act jennifer 478200595 Controlled on Flonase, no medication changes Problem Multinodular goiter (nontoxic) E04.2 Active 3 0285578 Stable, we will continue to monitor Problem Osteoarthritis involving multiple joints on both sides of body M15.9 Active 959347638 advised Aleve 2 tabs plus APAP 2 tabs in the AM, may repeat at end of day Problem Hypokalemia E87.6 Active 35204353 Problem Age-related osteoporosis without current pathological fracture M81.0 Active 99058806 Problem Essential hypertension I10 Active 13367331 Well controlled on current regimen of metoprolol, lisinopril, verapamil, and HCTZ. No medication changes have been made Problem Hypomagnesemia E83.42 Active 057360682 Problem Senile cataract of right eye, unspecified age-re lated cataract type H25.9 Active 84503506 Problem Age-related cataract of both eyes, unspecified age-related cataract type H25.9 Active 15849073 Problem Menopausal and female climacteric states N95.1 Active 149006632 ALLERGIES Allergen (clinical drug ingredient) Drug/Non Drug Allergy do cumented on EMR Reaction Allergy Type Onset Date Status doxycycline Doxycycline Hyclate([facility] Code:[address]-68) Rash Dr day Allergy Active ENCOUNTERS from 1942 to 2020-03-24 Encounter Location Date Provider Diagnosis [facility] [address] [address] [place] [id number] Feb, [facility] Essential hypertension I10 ; Mixed hyperlipidemia E78.2 ; Esophageal reflux K21.9 ; Environmental and seasonal allergies J30.89 ; Multinodular goiter (nontoxic) E04.2 ; Magnesium deficiency E61.2 ; Menopausal and female climacteric states N95.1 ; Osteoarthritis involving multiple joints on both sides of body M15.9 ; Age-related osteoporosis without current pathological fracture M81.0 and Need for Streptococcus pneumoniae and influenza vaccination Z23 IMMUNIZATIONS Vaccine Route Administration Date Status Influenza [...] 4 Language: Question Answer Notes Languages spoken: Maori Yazidi: Question Answer Notes Yazidi No jainism beliefs that would impact health care. Drug and Alcohol Question Answer Notes Interpretation: No problems reported Total Score: 0 BMI Care Goal Follow-Up Question Answer Notes Above Normal BMI Follow-Up Dietary management educatio n, guidance, and counseling Tobacco Use: Question Answer Notes Are you a: never smoker never smoker REASON FOR REFERRAL No Information VITAL SIGNS Weight 142.4 lbs Feb, Height 62.50 in Feb, BMI 25.63 kg/m2 Feb, Heart Rate 66 /min Feb, Respiratory Rate 18 /min Feb, Temperature 97.4 degrees Fahrenheit Feb, Oximetry 98 Feb, Blood pressure systolic 118 mm Hg Feb, Blood pressure diastolic 76 mm Hg Feb, MEDICATIONS Medication SIG (Take, Route, Frequency, Duration) [...] Information RESULTS No Results REASON FOR VISIT [phone], lipids MEDICAL (GENERAL) HISTORY Type Description Date Medical [...] Notes Feb, Essential hypertension (ICD-10 - I10) We ll controlled on current regimen of metoprolol, lisinopril, verapamil, and HCTZ. No medication changes have been made Feb, Mixed hyperlipidemia (ICD-10 - E78.2) We ll controlled on current regimen of pravastatin. No medication changes have been made Feb, Esophageal reflux (ICD-10 - K21.9) Well controlled on current regimen of Protonix and ranitidine Feb, Environmental and seasonal allergies (IC D-10 - J30.89) Controlled on Flonase, no medication changes Feb, Multinodular goiter (nontoxic) (ICD-10 - E04.2) Stable, we will continue to monitor Feb, Magnesium deficiency (ICD-10 - E61.2) Feb, Menopausal and female climacteric states (ICD-10 - N95.1) Feb, Osteoarthritis involving mul tiple joints on both sides of body (ICD-10 - M15.9) advised Aleve 2 tabs plus APAP 2 tabs in the AM, may repeat at end of day Feb, Age-related osteoporosis wit hout current pathological fracture (ICD-10 - M81.0) Feb, Need for Streptococcus pneum oniae and influenza vaccination (ICD-10 - Z23) PLAN OF TREATMENT Medication Medication Name Sig Start Date Stop Date Pneumovax 23 25 MCG/0.5ML as directed Injection Feb, Future Test Test Name Order Date Comprehensive Metabolic Profile (CMP) [id number] LIPID PANEL (CARDIAC RISK) [id number] VITAMIN D 25-HYDROXY [id number] Next Appt Details 6 Months, 30 min Reason:htn, lipids Provider Name:Samira Peña, 2020-08- 2 10:00:00 AM, [address], [place], [address], Follow Up:6 Months, 30 minhtn, lipids Insurance Providers Payer Name Payer Address Payer Phone Insured Name Patient Relati onship to Insured Coverage Start Date Coverage End Date MEDICARE BLUE PPO [address] [facility] [address] [address] self
--- NOTE | 2020-06-18 15:36 | REP ---
INDICATION: Altered Mental Status. COMPARISON: None. TECHNIQUE: AP portable upright FINDINGS: Lungs mildly hypoinflated. There is patchy atelectasis or infiltrate in the right base. No pleural effusion. No definite infiltrate on the left. Heart size not grossly enlarged for this degree of inflation and portable technique. Calcified aortic arch with tortuosity but no aneurysm. Airway intact. There are degenerative changes in the spine and shoulders and hardware from prior ORIF of a humeral shaft fracture noted. No free air under the diaphragm. IMPRESSION: 1. Patchy atelectasis or infiltrate in the right base without definite left infiltrate. Small effusion difficult to exclude on the right 2. No gross cardiomegaly, pulmonary edema, widening of mediastinum or other acute findings. 3. Degenerative changes spine and shoulders with prior ORIF left humerus. <Electronically signed by Carloz Larson > 06/18/20 9330
[2020-06-18 15:43] LABS: ALBUMIN 2.6 GM/DL (3.2-5.2); ALT/SGPT 39 U/L (12-78); BILIRUBIN,DIRECT 0.3 MG/DL (0.0-0.2); BILIRUBIN,TOTAL 0.5 MG/DL (0.2-1.0); BLOOD UREA NITROGEN 59 MG/DL (7-18); CALCIUM LEVEL 8.8 MG/DL (8.8-10.2); CARBON DIOXIDE LEVEL 26 MEQ/L (21-32); CHLORIDE LEVEL 86 MEQ/L (98-107); CK-MB VALUE MASS < 1.0 NG/ML (<3.6); CPK CREATINE PHOSPHOKINASE 408 U/L (26-192); CREATININE FOR GFR 2.15 MG/DL (0.55-1.30); GLOMERULAR FILTRATION RATE 23.7 (>39); GLUCOSE, FASTING 111 MG/DL (70-100); MB/CK RELATIVE INDEX 0.25 (< OR =4); POTASSIUM SERUM 3.1 MEQ/L (3.5-5.1); SODIUM LEVEL 127 MEQ/L (136-145); THYROID STIMULATING HORMONE 0.289 uIU/ML (0.358-3.740); TOTAL PROTEIN 6.4 GM/DL (6.4-8.2); TROPONIN I 0.04 NG/ML (< 0.10)
[2020-06-18 15:59] LABS: ATYPICAL LYMPH 1 % (0-5); MONOCYTES 1 % (0-5); NEUTROPHILS 59 % (28-66); PLATELET ESTIMATE NORMAL (NORMAL)
[2020-06-18 16:01] LABS: DOHLE BODIES 1+
[2020-06-18 16:03] LABS: TOXIC GRANULATION 1+; TOXIC VACUOLATION 1+
[2020-06-18] MEDS ORDERED: ALBUTEROL 90 MCG/ACT 8GM HFA INHALER INH PRN (16:45)
[2020-06-18] MEDS ORDERED: ACETAMINOPHEN TAB 650MG DOSE (2X325MG) PO PRN (16:45)
--- OUTSIDE RECORDS SUMMARY | 2020-06-18 16:49 | CCD ---
Author Author [facility] Organization [facility] Address Unknown Phone Unavailable Care Team Providers Care Coal Passer Name Role Phone Casey, Samira PA Unavailable [...] Unavailable Unavailable Casey, Samira PA Unavailable Unavailable Csaey, Samira PA Unavailable Unavailable Casey, Samira PA [...] MD, M Ronn Unavailable Orio MD, M Rnon Unavailable Re-disclosure Warning The records that you [...] is protected by Article 27-F of the [facility] Public Health law. If you continue you may have access to information: Regarding HIV / AIDS; Provided by facilities licensed or operated by the [facility] Office of Mental Health; or Provided by the [facility] Office for People With Developmental Disabilities. If such information is present, then the following [facility] mandated warning applies: This information [...] law may result in a fine or senior care sentence or both. A general authorization for the release of medical or other information is NOT sufficient authorization for further disc losure. Allergies and Adverse Reactions Type Description Substance Reaction Status Data Source(s ) Drug allergy Doxycycline Hyclate Doxycycline Rash Active eC W1 (Count Includes [facility]) Encounters Encounter Providers Location Date Indications Data Source(s ) Unknown [address] [place] [phone] 05/25/2020 12:00:00 AM EST eCW1 ([facility]) Unknown [address] [place] [phone] 05/15/2020 12:00:00 AM EST eCW1 ([facility]) Unknown [address] [facility] [id number] 03/27/2020 12:00:00 AM EST eCW1 ([facility]) Outpatient [address] [facility] [phone] 03/08/2020 12:00:00 AM EST eCW1 ([facility]) Recurring Patient Attender: Ronn REESEeferrer: Samira STREETER 02/29/2020 08:08:57 AM EST [facility] Outpatient Attender: Ronn Gutierrez MDReferrer: Samira STREETER 02/28/2020 03:42:16 PM EST [facility] Recurring Patient Attender: Ronn REESEeferrer: Samira STREETER 02/28/2020 03:10:24 PM EST [facility] [address] [facility] [id number] 02/25/2020 12:00:00 AM EDT eCW1 ([facility]) Outpatient Attender: Samira STREETER 02/22/2020 08:02:0 0 AM EDT Lab [facility] Lab Unknown [address] [facility] [phone] 11/16/2019 12:00:00 AM EDT eCW1 ([facility]) [facility] [place] [address] [facility] [address] 09/07/2019 12:00:00 AM EDT eCW1 ([facility]) [facility] Emily [address] [facility] [address] 08/31/2019 12:00:00 AM EDT eCW1 ([facility]) [facility] [place] [address] [place] [address], [place] [address] 08/24/2019 12:00:00 AM EDT eCW1 ([facility]) Outpatient Attender: Samira STREETER 08/18/2019 08:39:0 0 AM EDT Lab [facility] Lab [facility] [place] [address] [place] [address], [place] [address] 08/10/2019 12:00:00 AM EDT eCW1 ([facility]) [facility] [place] [address] [place] [address], [place] [address] 08/10/2019 12:00:00 AM EDT eCW1 ([facility]) [facility] Emily [address] [place] [address], [place] [address] 06/08/2019 12:00:00 AM EST eCW1 ([facility]) [facility] Emily [address] [place] [address], [place] [address] 05/11/2019 12:00:00 AM EST eCW1 ([facility]) [facility] Emily [address] [place] [address], [place] [address] 05/07/2019 12:00:00 AM EST eCW1 ([facility]) Medications Medication Brand Name Start Date Product [...] EST active Pneumovax 23 25 MCG/0.5ML eCW1 ([facility] Includes [facility]) 0.5 ML pneumococcal capsular polysacchar kylee type 1 vaccine 0.05 MG/ML / pneumococcal capsular polysaccharide type 10A vaccine 0.05 MG/ML / pneumococcal capsular polysaccharide type 11A vaccine 0.05 MG/ML / pneumococcal capsular polysaccharide type 12F vac Pneumovax 23 25 MCG/0.5ML Pneumovax 23 25 MCG/0.5ML 03/08/2020 12:00:00 AM EST active Pneumovax 23 25 MCG/0.5ML eCW1 ([facility] Includes [facility]) 0.5 ML pneumococcal capsular polysacchar kylee type 1 vaccine 0.05 MG/ML / pneumococcal capsular polysaccharide type 10A vaccine 0.05 MG/ML / pneumococcal capsular polysaccharide type 11A vaccine 0.05 MG/ML / pneumococcal capsular polysaccharide type 12F vac Pneumovax 23 25 MCG/0.5ML Pneumovax 23 25 MCG/0.5ML 03/08/2020 12:00:00 AM EST active Pneumovax 23 25 MCG/0.5ML eCW1 ([facility] Includes [facility]) 0.5 ML pneumococcal capsular polysacchar kylee type 1 vaccine 0.05 MG/ML / pneumococcal capsular polysaccharide type 10A vaccine 0.05 MG/ML / pneumococcal capsular polysaccharide type 11A vaccine 0.05 MG/ML / pneumococcal capsular polysaccharide type 12F vac Pneumovax 23 25 MCG/0.5ML Pneumovax 23 25 MCG/0.5ML 03/08/2020 12:00:00 AM EST active Pneumovax 23 25 MCG/0.5ML eCW1 ([facility] Includes [facility]) Cyclobenzaprine hydrochloride 5 MG Oral Tablet Cyclobe nzaprine HCl 5 MG Cyclobenzaprine HCl 5 MG 08/24/2019 12:00:00 AM EDT 1.0 {tablet_at_bedtime_as_needed} active Cy clobenzaprine HCl 5 MG eCW1 ([facility] Includes [facility]) Cyclobenzaprine hydrochloride 5 MG Oral Tablet Cyclobe nzaprine HCl 5 MG Cyclobenzaprine HCl 5 MG 08/24/2019 12:00:00 AM EDT 1.0 {tablet_at_bedtime_as_needed} active Cy clobenzaprine HCl 5 MG eCW1 (Count Includes [facility]) Cyclobenzaprine hydrochloride 5 MG Oral Tablet Cyclobe nzaprine HCl 5 MG Cyclobenzaprine HCl 5 MG 08/24/2019 12:00:00 AM EDT active 1 tablet at bedtime as needed eCW1 ([facility] Includes [facility]) Cyclobenzaprine hydrochloride 5 MG Oral Tablet Cyclobe nzaprine HCl 5 MG Cyclobenzaprine HCl 5 MG 08/24/2019 12:00:00 AM EDT 1.0 {tablet_at_bedtime_as_needed} active Cy clobenzaprine HCl 5 MG eCW1 (Count Includes [facility]) Cyclobenzaprine hydrochloride 5 MG Oral Tablet Cyclobe nzaprine HCl 5 MG Cyclobenzaprine HCl 5 MG 08/24/2019 12:00:00 AM EDT 1.0 {tablet_at_bedtime_as_needed} active Cy clobenzaprine HCl 5 MG eCW1 (Count Includes [facility]) Cyclobenzaprine hydrochloride 5 MG Oral Tablet Cyclobe nzaprine HCl 5 MG Cyclobenzaprine HCl 5 MG 08/24/2019 12:00:00 AM EDT 1.0 {tablet_at_bedtime_as_needed} active Cy clobenzaprine HCl 5 MG eCW1 (Count Includes [facility]) Insurance Providers Payer name Policy type / Coverage type Policy ID Covered republican ID Covered republican's relationship to fontaine Policy [place] Plan Information MEDICARE BLUE PPO [id number] SP [id number] MEDICARE BLUE PPO 306 [id number] SP [id number] Blue Shield Medicare P [id number] SELF [id number] SELF PAY MEDICARE BLUE PPO EXCELLUS BC [id number] SP [id number] SELF PAY MEDICARE BLUE PPO EXCELLUS BC [id number] SP [id number] SELF PAY MEDICARE BLUE PPO EXCELLUS BC [id number] SP [id number] SELF PAY MEDICARE BLUE PPO EXCELLUS BC [id number] SP [id number] MEDICARE BLUE PPO 306 [id number] SP [id number] [facility] Other 0 Self 0 MEDICARE [id number] SP [id number] MEDICARE COMPLETE [id number] SP [id number] [facility] [id number] SP [id number] ANSI-Medicare Part B [id number] ANSI-Medicare Part B [id number] ANSI-Medicare Part B [id number] ANSI-Medicare Part B [id number] ANSI-Medicare Part B [id number] ANSI-Medicare Part B [id number] ANSI-Medicare Part B [id number] ANSI-Medicare Part B [id number] ANSI-Medicare Part B [id number] ANSI-Medicare Part B [id number] ANSI-Medicare Part B [id number] ANSI-Medicare Part B [id number] ANSI-Medicare Part B [id number] ANSI-Medicare Part B [id number] ANSI-Medicare Part B [id number] ANSI-Medicare Part B [id number] ANSI-Medicare Part B [id number] ANSI-Medicare Part B [id number] ANSI-Medicare Part B [id number] ANSI-Medicare Part B [id number] ANSI-Medicare Part B [id number] ANSI-Medicare Part B [id number] ANSI-Medicare Part B [id number] ANSI-Medicare Part B [id number] ANSI-Medicare Part B [id number]-[id number] ANSI-Medicare Part B [id number] ANSI-Medicare Part B [id number] SELF PAY MEDICARE BLUE PPO EXCELLUS [id number] SP [id number] ANSI-Medicare Part B [id number] ANSI-Medicare Part B [id number] ANSI-Medicare Part B [id number]-[id number] ANSI-Medicare Part B [id number] ANSI-Medicare Part B [id number] ANSI-Medicare Part B [id number] ANSI-Medicare Part B [id number] ANSI-Medicare Part B [id number] ANSI-Medicare Part B [id number] ANSI-Medicare Part B [id number] ANSI-Medicare Part B [id number] ANSI-Medicare Part B [id number] ANSI-Medicare Part B [id number] ANSI-Medicare Part B [id number] [facility] Medicare Passport F [id number] SELF [id number] ANSI-Medicare Part B [id number] ANSI-Medicare Part B [id number] [facility] Medicare Passport F [id number] SELF [id number] [facility] MEDICARE [id number] Sarah [id number] [facility] MEDICARE PI PI ANSI-Medicare Part B [id number] ANSI-Medicare Part B [id number] ANSI-Medicare Part B [id number] ANSI-Medicare Part B [id number] [facility] MEDICAID [id number] Sarah [id number] [facility] Medicare Passport F [id number] SELF [id number] [facility] Comm Plan Medicare F [id number] SELF [id number] Medicare C [id number] SELF [id number] A [facility] [id number] S [id number] [facility] MGD MEDICARE [id number] SP [id number] [facility] MGD MEDICARE [id number] SP [id number] MEDICARE [id number] SP [id number] D [facility] MEDICARE [place] [id number] S [id number] [employer] [id number] SP [id number] [employer] B[employer] [id number] SP [id number] [employer]S [id number] SP [id number] [employer] [id number] SP [id number] D [id number] Problems, Conditions, and Diagnoses Code Display Name Description Problem Type Effective Dates Data Source(s) E78.2 Mixed hyperlipidemia E78.2 - Mixed hyperlipidemia Diag nosis 02/22/2020 08:02:00 AM EDT [facility] Surgeries/Procedures Procedure Description Date Indications Data Source(s) PHYSICIAN TELEPHONE EVALUATION 21-30 MIN 08/24/2019 12 :00:00 AM EDT eCW1 (Count Includes [facility]) Results ID Date Data Source [id number] 02/28/2020 03:42:16 PM EST [facility], PCName: Deidre GeorgeROBB: 3Provider: Simon [...] of her left knee complaints at this gkiw-Ahhe-dev-counter anti-inflammatories as needed for pain control-Recommended daily [...] rce(s) Supporting Document(s) ID Date Data Source [id number] 02/22/2020 01:52:00 PM EDT [facility] Name Value Range Interpretation Code Description Data Annette rce(s) Supporting Document(s) SODIUM 132 MEQ/L 135-145 L [facility] POTASSIUM 3.9 MEQ/L 3.5-5.3 N [facility] CHLORIDE 97 MEQ/L 94-110 N [facility] CARBON DIOXIDE 31 MEQ/L 22-33 N [facility] ANION GAP 8 5-16 N [facility] BLOOD UREA NITRO 20 MG/DL 7-25 N [facility] CREATININE 0.8 MG/DL 0.6-1.4 N [facility] GFR 69.6 ML/MIN [facility] Stage G2 - Mildly decreased kidney func tion The GFR is an estimate of the Glomerular Filtration Rate. It is an aid to assess a patient's renal function. It is not a conclusive diagnosis of kidney disease. GFR normal is >=90 The MDRD GFR calculation is considered valid between the ages of 18 and 75 years only. BUN/CREAT RATIO 25 8-36 N [facility] GLUCOSE 100 MG/DL 70-100 N [facility] CA 10.3 MG/DL 8.7-10.5 N [facility] BILIRUBIN,TOTAL 0.6 MG/DL 0.1-1.3 N [facility] AST 18 U/L 5-40 N [facility] ALT 19 U/L 5-48 [facility] ALKALINE PHOSPHATASE 58 U/L 40-140 [facility] TOTAL PROTEIN 6.6 G/DL 5.9-8.3 N [facility] ALBUMIN 4.8 G/DL 3.0-5.1 N [facility] GLOBULIN 1.8 G/DL 1.5-3.5 N [facility] ALB/GLOB RATIO 2.7 G/DL 1.0-3.0 N [facility] ID Date Data Source [id number] 02/22/2020 01:52:00 PM [facility] Name Value Range Interpretation Code Description Data Annette rce(s) Supporting Document(s) MAGNESIUM 1.8 mg/dl 1.8-2.4 N [facility] ID Date Data Source [id number] 02/22/2020 01:52:00 PM [facility] Name Value Range Interpretation Code Description Data Annette rce(s) Supporting Document(s) TRIGLYCERIDES 135 MG/DL 45-150 N [facility] CHOLESTEROL 156 MG/DL 125-200 N [facility] LDL CHOLESTEROL 72 MG/DL 50-130 N [facility] HDL CHOLESTEROL 57 MG/DL 32-96 N [facility] CHOL/HDL RATIO 2.7 0-4.3 N [facility] ID Date Data Source [id number] 02/22/2020 01:52:00 PM [facility] Name Value Range Interpretation Code Description Data Annette rce(s) Supporting Document(s) Vitamin D,25-HYDROXY 73.9 ng/ml 30-100 N [facility] ealt Vitamin D Status Range De ficiency <20 ng/ml Insufficiency 20-29.9 ng/ml Sufficiency 30-100 ng/ml Toxicity >100 ng/ml Patients should not be tested for 72 hours post fluorescein dye angiography. A false elevation of result may occur. ID Date Data Source [id number] 02/22/2020 01:52:00 PM EDT [facility] Name Value Range Interpretation Code Description Data [facility] rce(s) Supporting Document(s) TSH 1.307 uIU/ML 0.470-4.200 N [facility] Patients should not be tested for 72 ho urs post fluorescein dye angiography. A false depression of result may occur. ID Date Data Source [id number] 08/18/2019 01:58:00 PM EDT [facility] Name Value Range Interpretation Code Description Data [facility](s) Supporting Document(s) SODIUM 136 MEQ/L 135-145 [facility] POTASSIUM 4.0 MEQ/L 3.5-5.3 [facility] CHLORIDE 96 MEQ/L 94-110 [facility] CARBON DIOXIDE 32 MEQ/L 22-33 [facility] ANION GAP 12 5-16 [facility] BLOOD UREA NITRO 21 MG/DL 7-25 [facility] CREATININE 0.9 MG/DL 0.6-1.4 [facility] GFR 60.7 ML/MIN [facility] Stage G2 - Mildly decreased kidney func tion The GFR is an estimate of the Glomerular Filtration Rate. It is an aid to assess a patient's renal function. It is not a conclusive diagnosis of kidney disease. GFR normal is >=90 The MDRD GFR calculation is considered valid between the ages of 18 and 75 years only. BUN/CREAT RATIO 23 8-36 [facility] GLUCOSE 92 MG/DL 70-100 [facility] CA 10.2 MG/DL 8.7-10.5 [facility] BILIRUBIN,TOTAL 0.7 MG/DL 0.1-1.3 [facility] AST 20 U/L 5-40 [facility] ALT 19 U/L 5-48 [facility] ALKALINE PHOSPHATASE 69 U/L 40-140 N [facility] TOTAL PROTEIN 6.7 G/DL 5.9-8.3 N [facility] ALBUMIN 5.0 G/DL 3.0-5.1 N [facility] GLOBULIN 1.7 G/DL 1.5-3.5 N [facility] ALB/GLOB RATIO 2.9 G/DL 1.0-3.0 N [facility] ID Date Data Source [id number] 08/18/2019 01:58:00 PM EDT [facility] Value Range Interpretation Code Description Data Annette rce(s) Supporting Document(s) MAGNESIUM 1.8 mg/dl 1.8-2.4 N [facility] ID Date Data Source [id number] 08/18/2019 01:58:00 PM EDT [facility] Value Range Interpretation Code Description Data Annette rce(s) Supporting Document(s) TRIGLYCERIDES 193 MG/DL 45-150 [facility] CHOLESTEROL 166 MG/DL 125-200 N [facility] LDL CHOLESTEROL 71 MG/DL 50-130 N [facility] HDL CHOLESTEROL 56 MG/DL 32-96 N [facility] CHOL/HDL RATIO 3.0 0-4.3 N [facility] ID Date Data Source [id number] 08/18/2019 01:58:00 PM EDT [facility] Value Range Interpretation Code Description Data Annette rce(s) Supporting Document(s) Vitamin D,25-HYDROXY 23.3 ng/ml 30-100 [facility] Vitamin D Status Range De ficiency <20 ng/ml Insufficiency 20-29.9 ng/ml Sufficiency 30-100 ng/ml Toxicity >100 ng/ml Patients should not be tested for 72 hours post fluorescein dye angiography. A false elevation of result may occur. Procedure Social History Code Duration Value Status Description Data Source(s ) Smoking 03/24/2020 12:00:00 AM EST Never Smoker completed Never S moker eCW1 (Count Includes [facility]) Smoking 03/24/2020 12:00:00 AM EST Never Smoker completed Never S moker eCW1 (Count Includes [facility]) Smoking 03/24/2020 12:00:00 AM EST Never Smoker completed Never S moker eCW1 (Count Includes [facility]) Smoking 03/24/2020 12:00:00 AM EST Never Smoker completed Never S moker eCW1 (Count Includes [facility]) Smoking 09/09/2019 12:00:00 AM EDT Never Smoker completed Never S moker eCW1 (Count Includes [facility]) Vital Signs ID Date Data Source UNK Name Value Range Interpretation Code Description Data Source(s) Diastolic blood pressure 76 mm[Hg] 76 mm[Hg] eCW1 (Count Includes [facility]) Systolic blood pressure 118 mm[Hg] 118 mm[Hg] e CW1 (Count Includes [facility]) Body temperature 97.4 [degF] 97.4 [degF] eCW1 ( Count Includes [facility]) Respiratory rate 18 /min 18 /min eCW1 ([facility]) Heart rate 66 /min 66 /min eCW1 ([facility]) Body mass index (BMI) [Ratio] 25.63 kg/m2 25.63 kg/m2 eCW1 (Count Includes [facility]) Body height 62.50 [in_i] 62.50 [in_i] eCW1 ([facility]) Body weight 142.4 [lb_av] 142.4 [lb_av] eCW1 ([facility]) Diastolic blood pressure mm[Hg] eCW1 (Count Includes [facility]) Systolic blood pressure 110 mm[Hg] 110 mm[Hg] e CW1 (Count Includes [facility]) Heart rate 57 /min 57 /min eCW1 ([facility]) Body mass index (BMI) [Ratio] 26.10 kg/m2 26.10 kg/m2 eCW1 (Count Includes [facility]) Body height 62.50 [in_us] 62.50 [in_us] eCW1 ([facility]) Body weight Measured [lb_av] eCW1 ([facility]cludes [facility]) Patient Treatment Plan of Care Planned Activity Planned Date Details Description Data Source (s) 0.5 ML pneumococcal capsular polysacchar kylee type 1 vaccine 0.05 MG/ML / pneumococcal capsular polysaccharide type 10A vaccine 0.05 MG/ML / pneumococcal capsular polysaccharide type 11A vaccine 0.05 MG/ML / pneumococcal capsular polysaccharide type 12F vac 03/08/2020 12:00:00 AM EST eCW1 ([facility]cludes [facility]) 0.5 ML pneumococcal capsular polysacchar kylee type 1 vaccine 0.05 MG/ML / pneumococcal capsular polysaccharide type 10A vaccine 0.05 MG/ML / pneumococcal capsular polysaccharide type 11A vaccine 0.05 MG/ML / pneumococcal capsular polysaccharide type 12F vac 03/08/2020 12:00:00 AM EST eCW1 (Count Includes [facility]) 0.5 ML pneumococcal capsular polysacchar kylee type 1 vaccine 0.05 MG/ML / pneumococcal capsular polysaccharide type 10A vaccine 0.05 MG/ML / pneumococcal capsular polysaccharide type 11A vaccine 0.05 MG/ML / pneumococcal capsular polysaccharide type 12F vac 03/08/2020 12:00:00 AM EST eCW1 (Count Includes [facility]) 0.5 ML pneumococcal capsular polysacchar kylee type 1 vaccine 0.05 MG/ML / pneumococcal capsular polysaccharide type 10A vaccine 0.05 MG/ML / pneumococcal capsular polysaccharide type 11A vaccine 0.05 MG/ML / pneumococcal capsular polysaccharide type 12F vac 03/08/2020 12:00:00 AM EST eCW1 ([facility] Includes [facility]) Cyclobenzaprine hydrochloride 5 MG Oral Tablet 08/24/2019 12:00:00 AM EDT eCW1 ([facility] Includes [facility]) Cyclobenzaprine hydrochloride 5 MG Oral Tablet 08/24/2019 12:00:00 AM EDT eCW1 (Count Includes [facility])
[2020-06-18] MEDS ORDERED: METOPROLOL 5 MG/5 ML VIAL IV PRN (17:00)
[2020-06-18] MEDS ORDERED: METOPROLOL TART 50 MG TAB PO ONE (17:30)
--- NOTE | 2020-06-18 17:44 | HPEPDOC ---
General Date of Admission 06/18/20 Date of Service: Jun 18, 2020 Chief Complaint The patient is a 79-year-old female admitted with a reason for visit of Alt Mental Status. Source: Patient Timing/Duration: Day(s) Severity: Moderate Associated Symptoms: Fever, Chills History of Present Illness Patient is 79 years old female with past mental history of hypertension, hyperlipidemia presented to the hospital with increased shortness of breath and generalized weakness. Patient stated that she didn't feel well for 1 week. Also patient developed fever and intermittent cough. In ER patient was found to have positive COVID test, leukocytosis of 15, creatinine 2.1, sodium 127. Chest x-ray showed Patchy atelectasis or infiltrate in the right base without definite left infiltrate. Small effusion difficult to exclude on the right Home Medications Scheduled Hydrochlorothiazide (Hydrochlorothiazide) 50 Mg Tablet, 50 MG PO DAILY, (Reported) Lisinopril (Lisinopril) 10 Mg Tablet, 10 MG PO DAILY, (Reported) Metoprolol Tartrate (Metoprolol Tartrate) 50 Mg Tablet, 50 MG PO DAILY, (Reported) Potassium Chloride (Potassium Chloride) 10 Meq Tablet.er, 10 MEQ PO DAILY, (Reported) Pravastatin Sodium (Pravastatin Sodium) 40 Mg Tablet, 40 MG PO QHS, (Reported) Verapamil HCl (Verapamil HCl) 120 Mg Tablet, 120 MG PO QHS, (Reported) Allergies Coded Allergies: tetracycline (Verified Allergy, Mild, rash, 01/28/19) codeine (Verified Adverse Reaction, Mild, nausea and vomiting, 01/28/19) Past Medical History Medical History HYPERTENSION HYPERLIPIDEMIA GERD HISTORY OF PEPTIC ULCER DISEASE CHRONIC ENVIRONMENTAL ALLERGIES HISTORY OF MIGRAINES 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 2 SON(S) , 1 DAUGHTER(S) . Social History * Smoker: Denies Alcohol: Denies Drugs: denies A-FIB/CHADSVASC A-FIB History Current/History of A-Fib/PAF?: No Current PO Anticoag Therapy: No Review of Systems Constitutional: Reports: Chills, Fever, Weakness, Fatigue Eyes: Reports: Pain; Denies: Vision change ENT: Reports: Head Aches Skin: Denies: Rash, Lesions Pulmonary: Reports: Dyspnea, Cough Cardiovascular: Denies: Chest Pain, Palpitations Gastrointestinal: Denies: Nausea Genitourinary: Denies: Dysuria Hematologic: Denies: Bruising Endocrine: Denies: Polydipsia Musculoskeletal: Denies: Neck Pain Neurological: Denies: Weakness Psych: Reports: Mood Normal Physical Examination General Exam: Positive: Alert, Cooperative Eye Exam: Positive: PERRLA ENT Exam: Positive: Atraumatic Neck Exam: Positive: Supple; Negative: JVD Chest Exam: Positive: Diminished Heart Exam: Positive: Tachycardic Telemetry: Positive: Sinus Abdomen Exam: Positive: Normal bowel sounds Extremity Exam: Negative: Clubbing Skin Exam: Positive: Nl turgor and temperature Neuro Exam: Positive: Cranial Nerves 3-12 NL Psych Exam: Positive: Mental status NL Vital Signs Vital Signs Date Time Temp Pulse Resp B/P (MAP) Pulse Ox O2 Delivery O2 Flow Rate FiO2 06/18/20 16:08 95.6 06/18/20 15:40 100 96 06/18/20 15:30 113/53 (73) 06/18/20 15:13 Room Air 06/18/20 14:18 40 2.0 Laboratory Data Labs 24H Laboratory Tests 2 06/18/20 14:42: Neutrophils (%) (Auto) , Nucleated Red Blood Cells % (auto) 0.0, Neutrophils 59, Band Neutrophils 39H, Monocytes (Manual) 1, Atypical Lymphocytes 1, Toxic Granu lation 1+, Dohle Bodies 1+, Toxic Vacuolation 1+, Platelet Estimate NORMAL, Urine Color HALLEY, Urine Appearance HAZY, Urine pH 5.0, Urine Specific [place] 1.014, Urine Protein 1+H, Urine Glucose (UA) NEGATIVE, Urine Ketones NEGATIVE, Urine Blood NEGATIVE, Urine Nitrite NEGATIVE, Urine Bilirubin NEGATIVE, Urine Urobilinogen 0.2, Urine Leukocyte Esterase NEGATIVE, Urine WBC (Auto) 2, Urine RBC (Auto) 1, Urine Hyaline Casts (Auto) 0, Urine Bacteria (Auto) NEGATIVE, Urine Squamous Epithelial Cells 0, Urine Sperm (Auto) , Blood Gas Bicarbonate Standard 24.6, Venous Blood pH 7.355, Venous Blood Partial Pressure CO2 51.5H, Venous Blood Partial Pressure O2 22.1L, Venous Blood Total Carbon Dioxide 29.7H, Venous Blood HCO3 28.1H, Venous Blood Oxygen Saturation 37.3L, Venous Blood Base Excess 1.7, Anion Gap 15, Glomerular Filtration Rate 23.7L, Lactic Acid Level 1.5, Calcium Level 8.8, Total Bilirubin 0.5, Direct Bilirubin 0.3H, Aspartate Amino Transf (AST/SGOT) 59H, Alanine Aminotransferase (ALT/SGPT) 39, Alkaline Phosphatase 89, Total Creatine Kinase 408H, Creatine Kinase MB < 1.0, Creatine K inase MB Relative Index 0.25, Troponin I 0.04, Total Protein 6.4, Albumin 2.6L, Albumin/Globulin Ratio 0.7L, Thyroid Stimulating Hormone (TSH) 0.289L 06/18/20 15:35: Bedside Glucose (Misc Panel) 119H CBC/BMP Laboratory Tests 06/18/20 14:42 Microbiology Microbiology 06/18/20 Respiratory Virus Panel (PCR) ([facility]) - Final, Complete SARS-CoV-2 (COVID 19) 06/18/20 Blood Culture, Received Pending 06/18/20 Blood Culture, Received Pending Assessment/Plan Patient is 79 years old female with past mental history of hypertension, hyperlipidemia presented to the hospital with increased shortness of breath and generalized weakness. Patient stated that she didn't feel well for 1 week. In ER patient was found to have positive COVID test, leukocytosis of 15, creatinine 2.1, sodium 127. Chest x-ray showed Patchy atelectasis or infiltrate in the right base without definite left infiltrate. Small effusion difficult to exclude on the right Problems (1) Sepsis Status: Acute Problem Text: Pt has tachycardia, tachypnea and leucocytosis 2/2 Covid 19 IV fluid, Remdesevir, dexamethasone IV Labs according to Covid 19 protocol (2) COVID-19 Status: Acute Problem Text: see above (3) Pneumonia Status: Acute Problem Text: Community acquired PNA 2/2 Covid Incentive spirometry inhalers (4) SUKI (acute kidney injury) Status: Acute Problem Text: prerenal IV fluid Continue to monitor (5) Hyponatremia Status: Acute Problem Text: Continue to monitor We'll check osmolality urine and serum Urine lites Continue to monitor BMP Plan / VTE VTE Prophylaxis Ordered?: Yes MAURICIO LAMBERT DO Jun 18, 2020 17:45
[2020-06-18 17:54] LABS: INR 1.12; PROTHROMBIN TIME 14.7 SECONDS (12.5-14.3)
[2020-06-18 17:55] LABS: PARTIAL THROMBOPLASTIN TIME 26.9 SECONDS (24.2-38.5)
[2020-06-18] MEDS ORDERED: POTASSIUM CHLORIDE 10 MEQ SR TABLET PO ONE ×2 (18:00→21:30)
[2020-06-18] MEDS ORDERED: MAG SULF 1GM/100ML (MAG RUN) 1 GM in IV 1 EA IV ONE (18:00)
[2020-06-18] MEDS ORDERED: NS 1,000 ML IV ONE (18:00)
[2020-06-18 18:07] LABS: D-DIMER QUANT 3124.22 ng/ml (<500)
[2020-06-18 18:29] LABS: ALBUMIN 2.3 GM/DL (3.2-5.2); BILIRUBIN,DIRECT 0.2 MG/DL (0.0-0.2); BILIRUBIN,TOTAL 0.4 MG/DL (0.2-1.0); C REACTIVE PROTEIN QUANTITATIV 39.7 MG/DL (0.00-0.30); TOTAL PROTEIN 5.6 GM/DL (6.4-8.2)
[2020-06-18 18:30] VITALS: O2SAT 100
[2020-06-18 18:40] VITALS: BP 105/58
[2020-06-18] MEDS: dexameTHASONE 4 MG/ML 1ML VIAL (J1100 PER 1MG) IV SCH (18:52)
[2020-06-18 20:00] VITALS: BP 91/55
[2020-06-18] MEDS ORDERED: REMDESIVIR 200 MG in NS 250 ML IV ONE (20:00)
[2020-06-18] MEDS: PRAVASTATIN 20 MG TAB PO SCH (20:28)
[2020-06-18] MEDS: HEPARIN SOD (PORCINE) 5000UNITS/ML 1ML VIAL/SYRINGE SC SCH (20:36)
[2020-06-18 20:57] LABS: CALCIUM LEVEL 8.4 MG/DL (8.8-10.2); CREATININE FOR GFR 1.83 MG/DL (0.55-1.30); GLOMERULAR FILTRATION RATE 28.5 (>39); POTASSIUM SERUM 2.9 MEQ/L (3.5-5.1)
[2020-06-18 21:26] VITALS: BP 103/58
[2020-06-18] MEDS ORDERED: SODIUM CHLORIDE 0.9% INJ 10 ML SYR IV ONE (22:00)
[2020-06-18] MEDS: KCL 10MEQ/100ML SWI (KRUN) 10 MEQ in IV 1 EA IV SCH ×2 (22:15→23:38)
[2020-06-18] MEDS: AZITHROMYCIN INJ 500 MG, VIAL MATE ADAPTER 1 EACH in D5W 250 ML IV SCH (22:39)
[2020-06-19] VITALS (10 sets, daily range): BP systolic 98–152; BP diastolic 53–69; O2SAT 94–100
[2020-06-19] MEDS: KCL 10MEQ/100ML SWI (KRUN) 10 MEQ in IV 1 EA IV SCH ×2 (01:14→02:59)
[2020-06-19 03:00] LABS: CREATININE FOR GFR 1.37 MG/DL (0.55-1.30); GLOMERULAR FILTRATION RATE 39.8 (>39); POTASSIUM SERUM 3.9 MEQ/L (3.5-5.1)
[2020-06-19 07:20] LABS: HEMATOCRIT 37.7 % (36.0-47.0); HEMOGLOBIN 12.5 g/dl (12.0-15.5); MEAN CORPUSCULAR HEMOGLOBIN 27.9 pg (27.0-33.0); MEAN CORPUSCULAR HGB CONC 33.2 g/dl (32.0-36.5); MEAN CORPUSCULAR VOLUME 84.2 fl (80.0-96.0); PLATELET COUNT, AUTOMATED 263 10^3/uL (150-450); RED BLOOD COUNT 4.48 10^6/uL (4.00-5.40); WHITE BLOOD COUNT 13.5 10^3/uL (4.0-10.0)
[2020-06-19 07:42] LABS: ALBUMIN 2.3 GM/DL (3.2-5.2); BILIRUBIN,DIRECT 0.3 MG/DL (0.0-0.2); BILIRUBIN,TOTAL 0.4 MG/DL (0.2-1.0); CALCIUM LEVEL 8.5 MG/DL (8.8-10.2); CREATININE FOR GFR 1.23 MG/DL (0.55-1.30); GLOMERULAR FILTRATION RATE 45.1 (>39); POTASSIUM SERUM 3.9 MEQ/L (3.5-5.1)
[2020-06-19 07:43] LABS: MAGNESIUM LEVEL 2.3 MG/DL (1.8-2.4)
[2020-06-19] MEDS: dexameTHASONE 4 MG/ML 1ML VIAL (J1100 PER 1MG) IV SCH (08:20)
[2020-06-19] MEDS: HEPARIN SOD (PORCINE) 5000UNITS/ML 1ML VIAL/SYRINGE SC SCH (08:20)
[2020-06-19] MEDS: METOPROLOL TART 50 MG TAB PO SCH ×2 (08:21→20:52)
[2020-06-19] MEDS: POTASSIUM CHLORIDE 10 MEQ SR TABLET PO SCH (08:21)
[2020-06-19] MEDS ORDERED: VERAPAMIL 40 MG TAB PO SCH (09:00)
[2020-06-19] MEDS ORDERED: METOPROLOL TART 50 MG TAB PO SCH (09:00)
[2020-06-19] MEDS: NS 1,000 ML IV SCH ×2 (09:33→20:53)
[2020-06-19 09:52] LABS: OSMOLALITY URINE 463 MOSM/KG (500-800)
[2020-06-19 10:09] LABS: SODIUM,RANDOM URINE 66 MEQ/L
--- NOTE | 2020-06-19 12:36 | IPNPDOC ---
Date Seen The patient was seen on 06/19/20. Progress Note SUBJECTIVE: 79-year-old female with history of hypertension, hyperlipidemia, GERD, arthritis, presented to to [facility] with malaise, fever, intermittent cough for the Covid positive and hyponatremic. She will infiltrate in the left lung base along with an effusion on the right. Admitted for sepsis and lactic acidosis as well as AKA and hyponatremia. Resume treated with ceftriaxone and azithromycin. Sodium is improved. Receiving remdesivir and dexamethasone. OBJECTIVE PHYSICAL EXAMINATION: VITAL SIGNS: please see below General: flushed, diaphoretic, space heater next to patient HEENT: PERRLA, EOMI, sclerae clear Neck: supple, normal ROM, no JVD Respiratory: reduced air entry bilaterally, no wheeze, no rales, no crackles CVS: RRR, normal S1, S2, no murmurs Abdo: soft, no masses, no hepatosplenomegaly, BS+, no rebound tenderness Extremities: no edema, pulses 2+ MSK: no joint deformities, normal ROM Neuro: no focal neuro deficits, moving all 4 extremities, CN2-12 intact. Strength 5/5 in all 4 extremities. No nystagmus. Psych: calm, cooperative, AAO x 1-2 LABORATORY DATA, IMAGING STUDIES, MICROBIOLOGY: Please see below. DVT prophylaxis ordered?: SCDs, TEDs, switch heparin to lovenox 0.5 mg/kg q12h PROBLEMS: Sepsis - resolved - VS - treat covid, pneumonia Covid-19 - c/w remdesevir Day 2 - c/w dexamethasone Day 2 - abx with ceftriaxone, azithrom - DVT ppx lovenox 0.5 mg/kg q12h - trend inflammatory markers Pneumonia - c/w azithromycin, ceftriaxone - trend procal - f/u cultures Acute metabolic encephalopathy - likely due to covid, sepsis, suki SUKI - resolved Hyponatremia - improving - suspect 2/ HCTZ use (took 50 mg at home) - c/w gently IVF NS 80 cc/hr - repeat BMP in am VS, I&O, 24H, Fishbone Vital Signs/I&O Vital Signs Date Time Temp Pulse Resp B/P (MAP) Pulse Ox O2 Delivery O2 Flow Rate FiO2 06/19/20 12:00 94 Room Air 06/19/20 12:00 98.0 83 18 144/65 (91) 06/18/20 14:18 2.0 I&O- Last 24 Hours up to 6 AM 06/19/20 05:59 Intake Total 4045 ml Output Total 1400 ml Balance 2645 ml Laboratory Data 24H LABS Laboratory Tests 2 06/18/20 14:42: Neutrophils (%) (Auto) , Nucleated Red Blood Cells % (auto) 0.0, Neutrophils 59, Band Neutrophils 39H, Monocytes (Manual) 1, Atypical Lymphocytes 1, Toxic Granulation 1+, Dohle Bodies 1+, Toxic Vacuolation 1+, Platelet Estimate NORMAL, Urine Color HALLEY, Urine Appearance HAZY, Urine pH 5.0, Urine Specific [place] 1.014, Urine Protein 1+H, Urine Glucose (UA) NEGATIVE, Urine Ketones NEGATIVE, Urine Blood NEGATIVE, Urine Nitrite NEGATIVE, Urine Bilirubin NEGATIVE, Urine Urobilinogen 0.2, Urine Leukocyte Esterase NEGATIVE, Urine WBC (Auto) 2, Urine RBC (Auto) 1, Urine Hyaline Casts (Auto) 0, Urine Bacteria (Auto) NEGATIVE, Urine Squamous Epithelial Cells 0, Urine Sperm (Auto) , Blood Gas Bicarbonate Standard 24.6, Venous Blood pH 7.355, Venous Blood Partial Pressure CO2 51.5H, Venous Blood Partial Pressure O2 22.1L, Venous Blood Total Carbon Dioxide 29.7H, Venous Blood HCO3 28.1H, Venous Blood Oxygen Saturation 37.3L, Venous Blood Base Excess 1.7, Anion Gap 15, Glomerular Filtration Rate 23.7L, Lactic Acid Level 1.5, Calcium Level 8.8, Total Bilirubin 0.5, Direct Bilirubin 0.3H, Aspartate Amino Transf (AST/SGOT) 59H, Alanine Aminotransferase (ALT/SGPT) 39, Alkaline Phosphatase 89, Total Creatine Kinase 408H, Creatine Kinase MB < 1.0, Creatine Kinase MB Relative Index 0.25, Troponin I 0.04, Total Protein 6.4, Albumin 2.6L, Albumin/Globulin Ratio 0.7L, Thyroid Stimulating Hormone (TSH) 0.289L 06/18/20 15:35: Bedside Glucose (Misc Panel) 119H 06/18/20 17:25: Total Bilirubin 0.4, Direct Bilirubin 0.2, Aspartate Amino Transf (AST/SGOT) 59H, Alanine Aminotransferase (ALT/SGPT) 33, Alkaline Phosphatase 79, Total Protein 5.6L, Albumin 2.3L, Albumin/Globulin Ratio 0.7L, Prothrombin Time 14.7H, Prothromb Time International Ratio 1.12, Activated Partial Thromboplast Time 26.9, Fibrinogen 1055H, D-Dimer, Quantitative 3124.22H, Ferritin 601H, C- Reactive Protein, Quantitative 39.70H 06/18/20 17:26: 06/18/20 20:12: Anion Gap 13, Glomerular Filtration Rate 28.5L, Osmolality 275L, Calcium Level 8.4L 06/18/20 23:51: Urine Random Osmolality 377L, Urine Random Sodium 34 06/19/20 02:08: Anion Gap 11, Glomerular Filtration Rate 39.8, Calcium Level 8.0L 06/19/20 07:06: Anion Gap 12, Glomerular Filtration Rate 45.1, Calcium Level 8.5L, Nucleated Red Blood Cells % (auto) 0.0, Magnesium Level 2.3, Total Bilirubin 0.4, Direct Bilirubin 0.3H, Aspartate Amino Transf (AST/SGOT) 65H, Alanine Aminotransferase (ALT/SGPT) 43, Alkaline Phosphatase 91, Total Protein 6.0L, Albumin 2.3L, Albumin/Globulin Ratio 0.6L 06/19/20 09:34: Urine Random Osmolality 463L, Urine Random Sodium 66 CBC/BMP Laboratory Tests 06/18/20 14:42 06/18/20 20:12 06/19/20 02:08 06/19/20 07:06 Microbiology Microbiology 06/18/20 Respiratory Virus Panel (PCR) ([facility]) - Final, Complete SARS-CoV-2 (COVID 19) 06/18/20 Blood Culture, Received Pending 06/18/20 Blood Culture, Received Pending JA ESPINAL MD Jun 19, 2020 12:36
[2020-06-19] MEDS: cefTRIAXone SOD 1 GM in D5W MINI-BAG PLUS 50 ML IV SCH (13:31)
[2020-06-19 15:01] LABS: CALCIUM LEVEL 9.4 MG/DL (8.8-10.2); CREATININE FOR GFR 1.04 MG/DL (0.55-1.30); GLOMERULAR FILTRATION RATE 54.7 (>39); POTASSIUM SERUM 4.2 MEQ/L (3.5-5.1)
[2020-06-19] MEDS ORDERED: REMDESIVIR 100 MG in NS 250 ML IV SCH (20:00)
[2020-06-19 20:38] LABS: BLOOD UREA NITROGEN 35 MG/DL (7-18); CALCIUM LEVEL 8.9 MG/DL (8.8-10.2); CARBON DIOXIDE LEVEL 24 MEQ/L (21-32); CHLORIDE LEVEL 95 MEQ/L (98-107); GLOMERULAR FILTRATION RATE > 60.0 (>39); GLUCOSE, FASTING 168 MG/DL (70-100); POTASSIUM SERUM 3.8 MEQ/L (3.5-5.1); SODIUM LEVEL 129 MEQ/L (136-145)
[2020-06-19] MEDS: ENOXAPARIN 30MG/0.3ML SYRINGE (J1650 PER 10MG) SC SCH (20:51)
[2020-06-19] MEDS: PRAVASTATIN 20 MG TAB PO SCH (20:54)
[2020-06-19] MEDS ORDERED: SODIUM CHLORIDE 0.9% INJ 10 ML SYR IV SCH (21:00)
[2020-06-19] MEDS: AZITHROMYCIN INJ 500 MG, VIAL MATE ADAPTER 1 EACH in D5W 250 ML IV SCH (23:05)
[2020-06-20] VITALS: O2SAT 95
[2020-06-20 02:16] LABS: BLOOD UREA NITROGEN 36 MG/DL (7-18); CALCIUM LEVEL 8.9 MG/DL (8.8-10.2); CARBON DIOXIDE LEVEL 25 MEQ/L (21-32); CHLORIDE LEVEL 96 MEQ/L (98-107); CREATININE FOR GFR 0.81 MG/DL (0.55-1.30); GLOMERULAR FILTRATION RATE > 60.0 (>39); GLUCOSE, FASTING 189 MG/DL (70-100); POTASSIUM SERUM 3.5 MEQ/L (3.5-5.1); SODIUM LEVEL 130 MEQ/L (136-145)
[2020-06-20 04:00] VITALS: BP 137/68; O2SAT 95
[2020-06-20 06:54] LABS: INR 1.12; PROTHROMBIN TIME 14.6 SECONDS (12.5-14.3)
[2020-06-20 06:55] LABS: PARTIAL THROMBOPLASTIN TIME 33.9 SECONDS (24.2-38.5)
[2020-06-20 07:22] LABS: ALT/SGPT 48 U/L (12-78); BILIRUBIN,DIRECT 0.2 MG/DL (0.0-0.2); BILIRUBIN,TOTAL 0.3 MG/DL (0.2-1.0); BLOOD UREA NITROGEN 33 MG/DL (7-18); CALCIUM LEVEL 8.6 MG/DL (8.8-10.2); CARBON DIOXIDE LEVEL 26 MEQ/L (21-32); CHLORIDE LEVEL 96 MEQ/L (98-107); CPK CREATINE PHOSPHOKINASE 106 U/L (26-192); CREATININE FOR GFR 0.76 MG/DL (0.55-1.30); FERRITIN 867 NG/ML (8-252); GLOMERULAR FILTRATION RATE > 60.0 (>39); GLUCOSE, FASTING 129 MG/DL (70-100); LDH LACTATE DEHYDROGENASE 214 U/L (84-246); NT-PRO BNP 1497 PG/ML (<450); POTASSIUM SERUM 3.9 MEQ/L (3.5-5.1); SODIUM LEVEL 132 MEQ/L (136-145); TOTAL PROTEIN 5.2 GM/DL (6.4-8.2); TROPONIN I < 0.02 NG/ML (< 0.10)
[2020-06-20 07:51] VITALS: BP 147/70
[2020-06-20] MEDS: ENOXAPARIN 30MG/0.3ML SYRINGE (J1650 PER 10MG) SC SCH (08:59)
[2020-06-20 09:00] VITALS: BP 147/70
[2020-06-20] MEDS: POTASSIUM CHLORIDE 10 MEQ SR TABLET PO SCH (09:00)
[2020-06-20] MEDS: dexameTHASONE 4 MG/ML 1ML VIAL (J1100 PER 1MG) IV SCH (09:00)
[2020-06-20] MEDS: METOPROLOL TART 50 MG TAB PO SCH (09:00)
[2020-06-20] MEDS ORDERED: CEFD300CAP PO (11:17)
[2020-06-20] MEDS ORDERED: LOPR1TAB6 PO (11:17)
[2020-06-20] MEDS ORDERED: AZIT500T5 PO (11:17)
[2020-06-20] MEDS ORDERED: DEXA6TAB PO (11:17)
[2020-06-20] MEDS ORDERED: FAMO20TA PO (11:36)
--- NOTE | 2020-06-20 11:36 | DS.PDOC ---
Discharge Summary General Date of Admission Jun 18, 2020 at 16:31 Date of Discharge 06/20/2020 Discharge Summary PROCEDURES PERFORMED DURING STAY: [None]. ADMITTING DIAGNOSES / DISCHARGE DIAGNOSES: s/p Sepsis COVID19 infection Possible pneumonia Hyponatremia - likely 2/2 HCTZ and hypovolemia s/p Acute metabolic encephalopathy - likely due to COVID19 / sepsis s/p SUKI GI prophylaxis DVT prophylaxis COMPLICATIONS/CHIEF COMPLAINT: Confusion HISTORY OF PRESENT ILLNESS: Patient is a 79-year-old female with a PMHx of HTN, DLP, who presented to the ER with SOB / weakness and confusion. Patient had developed a fever and intermittent cough. In the emergency room, patient was found to be COVID19 positive. Patient's lab work had revealed hyponatremia and hypo-kalemia. She was admitted to the hospital service for further evaluation, treatment. HOSPITAL COURSE: s/p Sepsis COVID19 infection - Currently saturating well on room air - COVID19 positive on 06/18 - Inflammatory markers are down trending - Remdesivir (Day #3) - c/w dexamethasone on discharge (Day #3) - c/w ceftriaxone and Azithromycin (Day #3) - will complete antibiotic course as an outpatient; PCT trending down Debility - Patient has worked with physical therapy and has been cleared for discharge home with services Possible pneumonia - Blood cultures 06/18: Negative at 24 hours - See above Hyponatremia - likely 2/2 HCTZ and hypovolemia - Improving; trending toward normal - Will DC IV fluids - Will hold HCTZ / Lisinopril on discharge s/p Acute metabolic encephalopathy - likely due to COVID19 / sepsis - Currently patient is fully oriented to person, place and time - Aware of president s/p SUKI GI prophylaxis - Will start Famotidine DVT prophylaxis - c/w Lovenox; weight-based prophylactic dosing DISCHARGE MEDICATIONS: Please see below. ALLERGIES: Please see below. PHYSICAL EXAMINATION ON DISCHARGE: Vitals (See below) General: Lying in bed, appears comfortable, patient is fully oriented to person, place and time is aware for the president is HEENT: NC, AT CVS: +S1S2 Lungs: Fair air entry b/l, no evidence of wheezing, rhonchi or rales Abdomen: Soft, ND, NT Extremities: No evidence of edema, - Calf tenderness LABORATORY DATA: Please see below. ACTIVITY: [As tolerated]. DISCHARGE PLAN: Home with services DISPOSITION: Please follow-up with primary care provider within the next 7 days Remain compliant with treatment plan and medications Return to the ER if you experience any problems DISCHARGE CONDITION: [Stable]. TIME SPENT ON DISCHARGE: 35 minutes Vital Signs/I&Os Vital Signs Date Time Temp Pulse Resp B/P (MAP) Pulse Ox O2 Delivery O2 Flow Rate FiO2 06/20/20 09:00 78 147/70 06/20/20 07:51 95.6 17 99 Room Air 06/18/20 14:18 2.0 I&O- Last 24 Hours up to 6 AM 06/20/20 06:00 Intake Total 1735 ml Output Total 2800 ml Balance -1065 ml Laboratory Data Labs 24H Laboratory Tests 2 06/19/20 14:21: Anion Gap 10, Glomerular Filtration Rate 54.7, Calcium Level 9.4 06/19/20 19:58: Anion Gap 10, Glomerular Filtration Rate > 60.0, Calcium Level 8.9 06/20/20 01:46: Anion Gap 9, Glomerular Filtration Rate > 60.0, Calcium Level 8.9 06/20/20 06:13: Anion Gap 10, Glomerular Filtration Rate > 60.0, Calcium Level 8.6L, Prothrombin Time 14.6H, Prothromb Time International Ratio 1.12, Activated Partial Thromboplast Time 33.9, Fibrinogen 875H, Ferritin 867H, Total Bilirubin 0.3, Direct Bilirubin 0.2, Aspartate Amino Transf (AST/SGOT) 65H, Alanine Zimmer otransferase (ALT/SGPT) 48, Alkaline Phosphatase 79, Lactate Dehydrogenase 214, Total Creatine Kinase 106, Troponin I < 0.02#, OX-Ltp-T-Type Natriuretic Peptide 1497H, Total Protein 5.2L, Albumin 2.0L, Albumin/Globulin Ratio 0.6L, Procalcitonin 0.90 CBC/BMP Laboratory Tests 06/19/20 14:21 06/19/20 19:58 06/20/20 01:46 06/20/20 06:13 Microbiology Microbiology 06/18/20 Respiratory Virus Panel (PCR) ([facility]) - Final, Complete SARS-CoV-2 (COVID 19) 06/18/20 Blood Culture - Preliminary, Resulted No growth after 24 hours . All specim... 06/18/20 Blood Culture - Preliminary, Resulted No growth after 24 hours . All specim... Discharge Medications Scheduled Azithromycin (Azithromycin) 500 Mg Tablet, 1 TAB PO DAILY Cefdinir (Cefdinir) 300 Mg Capsule, 1 CAP PO BID Dexamethasone (Dexamethasone) 6 Mg Tablet, 1 TAB PO DAILY Metoprolol Tartrate (Metoprolol Tartrate) 50 Mg Tablet, 50 MG PO DAILY, (Repo rted) Metoprolol Tartrate (Lopressor) 50 Mg Tablet, 50 MG PO BID Potassium Chloride (Potassium Chloride) 10 Meq Tablet.er, 10 MEQ PO DAILY, (Reported) Pravastatin Sodium (Pravastatin Sodium) 40 Mg Tablet, 40 MG PO QHS, (Reported) Allergies Coded Allergies: tetracycline (Verified Allergy, Mild, rash, 01/28/19) codeine (Verified Adverse Reaction, Mild, nausea and vomiting, 01/28/19) JESUS CHERY MD Jun 20, 2020 11:36
[2020-06-20] MEDS: cefTRIAXone SOD 1 GM in D5W MINI-BAG PLUS 50 ML IV SCH (14:00)
[2020-06-20 14:43] LABS: BLOOD UREA NITROGEN 35 MG/DL (7-18); CALCIUM LEVEL 9.1 MG/DL (8.8-10.2); CARBON DIOXIDE LEVEL 23 MEQ/L (21-32); CHLORIDE LEVEL 97 MEQ/L (98-107); CREATININE FOR GFR 0.72 MG/DL (0.55-1.30); GLOMERULAR FILTRATION RATE > 60.0 (>39); GLUCOSE, FASTING 144 MG/DL (70-100); POTASSIUM SERUM 3.9 MEQ/L (3.5-5.1); SODIUM LEVEL 130 MEQ/L (136-145)
== END 2020-06-20 17:35 | disposition home or self-care (01) | DRG 871 ==
LOC: EDBD 14:10 → M ED 14:10 → M ED INP 16:31 → M 4MAIN 18:43
PROVIDERS: ADMIT Internal Medicine; ATTEND Internal Medicine
DX: A41.9 Sepsis, unspecified organism (principal); J12.82 Pneumonia due to coronavirus disease 2019; U07.1 COVID-19; G93.41 Metabolic encephalopathy; N17.9 Acute kidney failure, unspecified; E87.1 Hypo-osmolality and hyponatremia; I10 Essential (primary) hypertension; Z79.899 Other long term (current) drug therapy; Z88.5 Allergy status to narcotic agent; Z88.8 Allergy status to other drugs, medicaments and biological substances; E78.5 Hyperlipidemia, unspecified; K21.9 Gastro-esophageal reflux disease without esophagitis; G43.909 Migraine, unspecified, not intractable, without status migrainosus; M16.4 Bilateral post-traumatic osteoarthritis of hip

== ENCOUNTER → 2020-10-17 | Outpatient (REF) | payer MEDICARE ==
[~2020-10-17] MED LIST changes: +AZIT500T5 PO; +CEFD300CAP PO; +DEXA6TAB PO; +FAMO20TA PO; +LOPR1TAB6 PO
== END ==
LOC: M SFHCADAM 11:44
PROVIDERS: ATTEND Physician Assistant
DX: L65.9 Nonscarring hair loss, unspecified (principal)

== ENCOUNTER → 2022-05-01 | Outpatient (REF) | payer MEDICARE | LOC: M SFHCADAM 14:56 | PROVIDERS: ATTEND Family Medicine | DX: I10 Essential (primary) hypertension (principal); E78.2 Mixed hyperlipidemia; E61.2 Magnesium deficiency; M81.0 Age-related osteoporosis without current pathological fracture; Z13.1 Encounter for screening for diabetes mellitus ==

== ENCOUNTER → 2023-05-27 | Outpatient (REF) | payer MEDICARE ==
[2023-05-27 13:40] LABS: ALBUMIN 3.8 G/DL (3.2-5.2); ALKALINE PHOSPHATASE 60 U/L (46-116); ALT/SGPT 17 U/L (7.0-40); AST/SGOT 17 U/L (<34); BILIRUBIN,TOTAL 0.6 MG/DL (0.3-1.2); BLOOD UREA NITROGEN 19 MG/DL (9-23); CALCIUM LEVEL 10.3 MG/DL (8.3-10.6); CARBON DIOXIDE LEVEL 30 MMOL/L (20-31); CHLORIDE LEVEL 107 MMOL/L (98-107); CHOLESTEROL LEVEL 183 MG/DL (<200); CHOLESTEROL RISK RATIO 2.72 (<5); CREATININE FOR GFR 0.86 MG/DL (0.55-1.30); GLOMERULAR FILTRATION RATE > 60.0 (>32); GLUCOSE, FASTING 91 MG/DL (74-106); HDL CHOLESTEROL 67.2 MG/DL (>40); LDL CHOLESTEROL 92.4 MG/DL (<100); NON-HDL-C 115.8 MG/DL; POTASSIUM SERUM 4.7 MMOL/L (3.5-5.1); SODIUM LEVEL 141 MMOL/L (136-145); THYROID STIMULATING HORMONE 1.056 uIU/ML (0.55-4.78); TOTAL PROTEIN 6.6 G/DL (5.7-8.2); TRIGLYCERIDES LEVEL 117 MG/DL (<150)
[2023-05-27 13:41] LABS: FREE T4 1.05 NG/DL (0.89-1.76)
[2023-05-27 13:50] LABS: HEMOGLOBIN A1c 5.4 % (4.0-6.0)
== END ==
LOC: M SFHCADAM 09:24
PROVIDERS: ATTEND Family Medicine
DX: I10 Essential (primary) hypertension (principal); E78.2 Mixed hyperlipidemia; E04.2 Nontoxic multinodular goiter; E83.42 Hypomagnesemia; Z13.1 Encounter for screening for diabetes mellitus

== ENCOUNTER → 2024-05-28 | Outpatient (REF) | payer MEDICARE ==
[2024-05-28 17:53] LABS: HEMATOCRIT 46.9 % (36.0-47.0); HEMOGLOBIN 15.2 g/dl (12.0-15.5); MEAN CORPUSCULAR HEMOGLOBIN 29.6 pg (27.0-33.0); MEAN CORPUSCULAR HGB CONC 32.4 g/dl (32.0-36.5); MEAN CORPUSCULAR VOLUME 91.2 fl (80.0-96.0); PLATELET COUNT, AUTOMATED 290 10^3/uL (150-450); RED BLOOD COUNT 5.14 10^6/uL (4.00-5.40); WHITE BLOOD COUNT 6.7 10^3/uL (4.0-10.0)
[2024-05-28 18:02] LABS: ALKALINE PHOSPHATASE 60 U/L (35-104); ALT/SGPT 21 U/L (7.0-40); AST/SGOT 20 U/L (<34); BILIRUBIN,TOTAL 0.5 MG/DL (0.3-1.2); BLOOD UREA NITROGEN 22 MG/DL (9-23); CALCIUM LEVEL 9.2 MG/DL (8.3-10.6); CARBON DIOXIDE LEVEL 30 MMOL/L (20-31); CHLORIDE LEVEL 101 MMOL/L (98-107); CHOLESTEROL LEVEL 193 MG/DL (<200); CREATININE FOR GFR 0.79 MG/DL (0.55-1.30); FREE T4 1.19 NG/DL (0.89-1.76); GLOMERULAR FILTRATION RATE > 60.0 (>32); GLUCOSE, FASTING 128 MG/DL (74-106); HDL CHOLESTEROL 80.4 MG/DL (>40); LDL CHOLESTEROL 77.8 MG/DL (<100); NON-HDL-C 112.6 MG/DL; POTASSIUM SERUM 4.4 MMOL/L (3.5-5.1); SODIUM LEVEL 140 MMOL/L (136-145); THYROID STIMULATING HORMONE 0.927 uIU/ML (0.55-4.78); TOTAL PROTEIN 6.8 G/DL (5.7-8.2); TRIGLYCERIDES LEVEL 174 MG/DL (<150)
== END ==
LOC: M SFHCADAM 13:31
PROVIDERS: ATTEND Family Medicine
DX: J01.00 Acute maxillary sinusitis, unspecified (principal); I10 Essential (primary) hypertension; E78.2 Mixed hyperlipidemia; E04.2 Nontoxic multinodular goiter; E83.42 Hypomagnesemia